=== PATIENT | male | born 1955 | race Caucasian/White ===

== ENCOUNTER 2021-09-08 09:58 | Outpatient (CLI) | payer MEDICAID, SELFPAY ==
[2021-09-08 12:25] LABS: Absolute Lymphocyte Count 2.02 X10^3/uL (0.83-4.51); Absolute Neutrophil Count 3.4 X10^3/uL (2.0-7.7); Basophil# 0.02 X10^3/uL; Basophil% 0.3 % (0-1); Eosinophil# 0.06 X10^3/uL; Hematocrit 44.8 % (40-54); Lymphocyte # 2.02 X10^3/ul (0.83-4.51); Lymphocyte % 33.1 % (19-41); Mean Corp Hgb Conc 33.5 g/dL (32-36); Mean Corpuscular Hgb 31.3 pg (27.0-32.0); Mean Corpuscular Volume 93.5 fL (80-94); Mean Platelet Vol. 10.8 fl (6.2-12.0); Monocyte# 0.55 X10^3/uL; NRBC Flagged by Analyzer 0 % (0-5); Neutrophil # 3.44 X10^3/uL (2.7-7.7); Neutrophil % 56.4 % (47-70); Platelet Count 195 K/mm3 (150-450); RBC Distribution Width SD 48.2 fl (35.1-43.9); Red Blood Count 4.79 M/mm3 (4.6-6.2); White Blood Count 6.1 K/mm3 (4.4-11.0)
[2021-09-08 13:01] LABS: AST(SGOT) 9 U/L (15-37); Alanine Aminotransfer ALT/SGPT 24 U/L (16-61); Albumin, Serum 3.7 g/dL (3.2-5.0); Alkaline Phosphatase 77 U/L (45-117); Anion Gap 5 (5-15); BUN 21 mg/dL (7-18); Calcium,Total 8.5 mg/dL (8.5-10.1); Chloride 107 mmol/L (98-107); Cholesterol 194 mg/dL (200); Creatinine, Serum 0.88 mg/dL (0.70-1.30); EST Glomerular Filtration Rate 93 mL/min (>60); Est Glom Filt Rate - Afr Amer 113 mL/min (>60); Globulin 3.7 g/dL (2.2-4.2); Glucose 92 mg/dL (74-106); High Density Lipoprotein 60 mg/dL; Potassium 4.2 mmol/L (3.5-5.1); Protein, Total 7.4 g/dL (6.4-8.2); Sodium Level 141 mmol/L (136-145); Triglycerides 226 mg/dL; Very Low Density Lipoprotein 45 mg/dL (5-40)
[2021-09-08 13:14] LABS: Valproic Acid (Depakene) Level 83 ug/mL (50-100)
== END 2021-09-08 23:59 | disposition home or self-care (01) ==
LOC: BIMLAB 09:59
PROVIDERS: PCP Internal Medicine; Referring Provider Internal Medicine; Visit Provider Internal Medicine
DX: J43.9 Emphysema, unspecified (principal); R56.9 Unspecified convulsions; R03.0 Elevated blood-pressure reading, without diagnosis of hypertension
CPT/HCPCS: 36415; 80053; 80061; 80164; 85025

== ENCOUNTER 2021-09-18 08:20 | Outpatient (CLI) | payer MEDICAID, SELFPAY ==
--- NOTE | 2021-09-18 13:23 | PFTCOMP ---
COMPLETE PULMONARY FUNCTION TEST INTERPRETATION Brief HPI: Patient is a 66 year old male, currently under the care of Dr. Mello, who presents to [facility] for complete pulmonary function tests secondary to diagnosis of emphysema. Respiratory therapist reports good effort and reproducible results. Interpretation: Forced expiration spirometry shows a severe large airways obstructive ventilatory defect with an FEV1 of 45% predicted. There is a significant bronchodilator response in FVC and FEV1 by strict ATS criteria. Spirograms are of good quality and plateau slowly, indicating slowly emptying areas of the lungs. The respiratory flow volume loop shows decreased expiratory flow rates at all lung volumes consistent with airway obstruction. Lung volumes by body plethysmography show an elevated total lung capacity at 11.67 L, 183% predicted. FRC and RV are elevated out of proportion. Lung volume measurements are consistent with hyperinflation and air-trapping. Diffusion capacity by carbon monoxide is relatively preserved at 75% predicted. The airway resistance is elevated. No previous pulmonary function tests were available for review. Impression: Partially reversible severe large airways obstructive ventilatory defect resulting in air trapping with hyperinflation in a pattern consistent with COPD/asthma overlap syndrome
== END 2021-09-18 23:59 | disposition home or self-care (01) ==
LOC: PSN 08:22
PROVIDERS: PCP Internal Medicine; Referring Provider Internal Medicine; Visit Provider Internal Medicine
DX: J43.9 Emphysema, unspecified (principal)
CPT/HCPCS: 94060; 94726; 94729

== ENCOUNTER → 2023-01-10 | Outpatient (CLI) | payer MEDICARE, BC, SELFPAY ==
--- NOTE | 2023-01-10 15:54 | RAD_ITS ---
INDICATION: Right Shoulder Pain EXAMINATION/TECHNIQUE: X-RAY - RIGHT XR Shoulder Min 2 Views COMPARISON: None. FINDINGS: SOFT TISSUES: Unremarkable. BONES/JOINTS: No fracture or dislocation. Moderate degenerative changes of the acromioclavicular joint with no significant downgoing osteophytes. The glenohumeral joint is unremarkable. No erosive changes. RAD/Shoulder min 2 Views IMPRESSION: AC joint degenerative change with otherwise unremarkable views of the right shoulder. Electronically Signed: Vamshi Jorgensen DO at 5:29 EDT ,
--- NOTE | 2023-01-10 15:55 | RAD_ITS ---
INDICATION: Radiculopathy EXAMINATION/TECHNIQUE: X-RAY - XR Spine Cervical 2 or 3 Views COMPARISON: None. FINDINGS: VERTEBRAE: No fracture or subluxation. Moderate degenerative changes. No erosive changes. PREVERTEBRAL SOFT TISSUES: Unremarkable. LUNG APICES: Visualized portions unremarkable. RAD/Cerv Spine 2 or 3 Views IMPRESSION: Moderate degenerative changes with no acute abnormality. Electronically Signed: Vamshi Jorgensen DO at 3:46 EDT ,
[2023-01-10 17:07] LABS: Absolute Lymphocyte Count 2.06 X10^3/uL (0.83-4.51); Absolute Neutrophil Count 4.9 X10^3/uL (2.0-7.7); Basophil# 0.03 X10^3/uL; Basophil% 0.4 % (0-1); Eosinophil# 0.06 X10^3/uL; Eosinophils% 0.8 % (0-5); Hematocrit 45.9 % (40-54); Hemoglobin 14.9 g/dL (13.0-16.5); Lymphocyte # 2.06 X10^3/ul (0.83-4.51); Mean Corp Hgb Conc 32.5 g/dL (32-36); Mean Corpuscular Volume 95.4 fL (80-94); Mean Platelet Vol. 10.9 fl (6.2-12.0); Monocyte# 0.51 X10^3/uL; Monocyte% 6.7 % (0-10); NRBC Flagged by Analyzer 0 % (0-5); Neutrophil # 4.94 X10^3/uL (2.7-7.7); Neutrophil % 64.7 % (47-70); Platelet Count 234 K/mm3 (150-450); RBC Distribution Width CV 14.2 % (11.6-14.6); RBC Distribution Width SD 49.9 fl (35.1-43.9); Red Blood Count 4.81 M/mm3 (4.6-6.2); White Blood Count 7.6 K/mm3 (4.4-11.0)
[2023-01-10 17:29] LABS: ALB/GLOB Ratio 0.9 RATIO (0.9-2.4); AST(SGOT) 10 U/L (15-37); Alanine Aminotransfer ALT/SGPT 24 U/L (16-61); Albumin, Serum 3.5 g/dL (3.2-5.0); Alkaline Phosphatase 72 U/L (45-117); Anion Gap 4 (5-15); BUN 23 mg/dL (7-18); BUN/Creat Ratio 25.2 RATIO (10-20); Calcium,Total 9.3 mg/dL (8.5-10.1); Chloride 110 mmol/L (98-107); Cholesterol 190 mg/dL (200); Creatinine, Serum 0.91 mg/dL (0.70-1.30); EST Glomerular Filtration Rate 88 mL/min (>60); Est Glom Filt Rate - Afr Amer 107 mL/min (>60); Globulin 3.8 g/dL (2.2-4.2); Glucose 142 mg/dL (74-106); High Density Lipoprotein 66 mg/dL; Potassium 4.6 mmol/L (3.5-5.1); Protein, Total 7.3 g/dL (6.4-8.2); Sodium Level 143 mmol/L (136-145); Triglycerides 156 mg/dL; Very Low Density Lipoprotein 31 mg/dL (5-40)
[2023-01-11 09:47] LABS: Hemoglobin A1c 6.2 % (3.8-5.6)
== END | disposition home or self-care (01) ==
PROVIDERS: PCP Internal Medicine; Referring Provider Internal Medicine; Visit Provider Internal Medicine
DX: I10 Essential (primary) hypertension (principal); R73.9 Hyperglycemia, unspecified; M54.12 Radiculopathy, cervical region; M25.511 Pain in right shoulder
CPT/HCPCS: 36415; 72040; 73030; 80053; 80061; 83036; 85025

== ENCOUNTER 2023-02-21 18:00 | Outpatient (RCR) | payer MEDICARE, BC, SELFPAY ==
--- NOTE | 2023-01-18 13:31 | HP.PTEVAL_ITS ---
Patient's Visit Information Visit Information Visit Information: DEE DEE is a 67 year old M referred to Physical Therapy by Dr. Tiny Mello MD with a diagnosis of RADICULOPATHY ,CERVICAL REGION ,PAIN IN RIGHT SHOULDER. Date of Evaluation: 01/18/23 Physical Therapist: Miguel Hercules, PT, Cert MDT, OCS Visit Plan Frequency: 1-2x /Week Duration: 4 Weeks Plan: PT INTERVTIONS POSTURAL EX'S ,CERVICAL ROM , STRENGTHEING ,ICTX 17# -25# X15MIN Subjective Subjective: This 67 y/o male with physical therapy cervical and right pain. Patient has right shoulder pain since ~ 3weeks . 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 Patient located right shoulder global. Patient seen DR florencio BLEVINS and had x-rays shoulder and neck. Occasional sharp pain otherwise light ache .Aggravating factors lifting bags at work ,pushing on arm. Over week pain worse with rotating neck . Patient can affects sleeping. Patient pain alleviating rest. Patient has paresthesia/tingling when raises arm [place]. Denies PARK /tinnitus/nausea. Patient DR thinks possible cervical radiculopathy. Patient condition affects QOL and function/job demands. 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 Right Shoulder: Pain Intensity (Out of 10): 3 Pain Intensity Range: 10 Objective Objective: POSTURE: mild forward posture rounded shoulders NEURO: c/o paresthesia/tingling in arm ,reflexes C5-6-7 1/ PALAPTION: unremarkable AROM: BUE AROM WFL MMT: RTC 4/5 ,Deltoid 4/5 CERVICAL AROM: flexion min loss extension ,lateral flexion/rotation mod loss Special Tests C/S Radiculapathy - Left Upper limb tension test: Negative C/S Radiculapathy - Right Upper limb tension test: Negative C/S Radiculapathy - Left Spurlings: Positive C/S Radiculapathy - Right Spurlings: Positive C/S Radiculapathy - Left Cervical distraction: Negative C/S Radiculapathy - Right Cervical distraction: Negative C/S Radiculapathy - Left Relief test: Negative C/S Radiculapathy - Right Relief test: Negative Sharp Kely: Negative Vertebral Artery Test: Negative Alar Ligament Test: Negative R Shoulder Drop Sign - IS Test: Negative R Shoulder Empty Can - SS: Negative R Shoulder Belly Press - SupScap: Negative R Shoulder Neer - Impingement: Negative R Shoulder Sarmiento Vincent - Impingement: Negative R Shoulder Yeargasons - SLAP: Negative R Shoulder O'Briens - SLAP/A-C: Negative R Shoulder AC Resisted - AC: Negative R Shoulder Shrug Sign - OA/Adhesive Capsulitis: Negative Balance/Special Test Scores Oswestry Neck Score: 11 Goals Goal 1:: Patient to be I with HEP Goal Time Frame: 4-6 Weeks Goal 2:: Patient to demonstrate 50% improvement with improved function Goal Time Frame: 4-6 Weeks Goal 3:: Patient cervical ROM for function of recovery to turn neck for driving Goal Time Frame: 4-6 Weeks Goal 4:: Patient to improve neck oswestry by 5 points to improve function Goal Time Frame: 4-6 Weeks Rehabilitation Potential Physical Therapy Diagnosis: This patient has possible cervical radiculopathy with pain in right arm with movements to right side and extension symptoms increase with positioning and motion testing right shoulder RTC and deltoid good strength thus benefit from skilled PT Rehabilitation Potential: Good Anticipated Interventions Patient/Client Instruction: Educate patient on: Condition and Plan of Care For the Purpose of:: To decrease pain, To improve nutrient delivery to tissue, To increase oxygenation perfusion, To improve muscle performance and motor function, To improve ability to perform ADL's, To increase tolerance to activity/condition/position, To improve ability of physical actions for home/community/work/leisure, To improve gait and locomotor functions, To increase flexibility/ROM, To improve balance, To reduce risk of recurrence and To improve tolerance to ADL's Therapeutic Exercise to Include: Strength training, Postural training, Flexibilty training and Active ROM For the Purpose of:: To decrease pain, To increase ROM, To improve muscle performance and motor function, To increase tolerance to activity/condition/position, To improve ability of physical actions for home/community/work/leisure, To improve health of tissue, To decrease soft tissue restriction and To increase flexibility/ROM TENS: Yes IF ES: Yes Ultrasound (thermal/non thermal): Yes Intermittent cervical traction: Yes For the Purpose of:: To decrease pain, To increase ROM, To improve nutrient delivery to tissue, To increase oxygenation perfusion, To improve health of tissue, To decrease soft tissue restriction and To increase flexibility/ROM Text: Thank you for the opportunity to evaluate your patient. For Medicare and Medicare HMO plans, please review the plan of care and approve it. It will need to be FAXED BACK to us at [phone] for Medicare purposes. For Medicare only, by signing this I certify the plan of care. Please let me know if there are questions or concerns regarding this plan of care. Physician Signature: Date:
--- NOTE | 2023-02-21 18:23 | HP.PTDCSUM ---
Discharge Summary D/C summary: It has been my pleasure to treat DEE DEE referred by Dr. Tiny Mello MD, with the diagnosis of RADICULOPATHY ,CERVICAL REGION ,PAIN IN RIGHT SHOULDER for a total of 4 visit(s). Discharge Date: 02/21/23 Please see the following information for a summary of their discharge status. Subjective Subjective: Doing good ready for d/c Pain Right Shoulder: Pain Intensity (Out of 10): 0 Overall Improvement % Improvement: 80 Objective Objective/Function: Objective: POSTURE: mild forward posture rounded shoulders NEURO: c/o paresthesia/tingling in arm ,reflexes C5-6-7 07/06 PALAPTION: unremarkable AROM: BUE AROM WFL MMT: RTC 4/5 ,Deltoid 4/5 CERVICAL AROM: flexion min loss extension ,lateral flexion/rotation mod loss Goals Goal 1:: Patient to be I with HEP Goal Progress: Goal Met Goal 2:: Patient to demonstrate 50% improvement with improved function Goal Progress: Goal Met Goal 3:: Patient cervical ROM for function of recovery to turn neck for driving Goal Progress: Goal Met Goal 4:: Patient to improve neck oswestry by 5 points to improve function Plan Plan: D/C D/C Information d/c sentence: If there are questions or concerns regarding this patient's physical therapy, please feel free to call me at [phone]. Thank you for the referral of this patient. Sincerely, Miguel Hercules, PT, Cert MDT, OCS Balance/Gait/Functional tests Balance/Special Test Scores Oswestry Neck Score: 0
== END 2023-02-21 19:00 | disposition home or self-care (01) ==
LOC: PT 18:00
PROVIDERS: PCP Internal Medicine; Referring Provider Internal Medicine; Visit Provider Internal Medicine
DX: M54.12 Radiculopathy, cervical region (principal); M25.511 Pain in right shoulder; G89.29 Other chronic pain
CPT/HCPCS: 97012; 97110; 97162

== ENCOUNTER → 2023-07-01 | Outpatient (CLI) | payer MEDICARE, BC, SELFPAY ==
--- OUTSIDE RECORDS SUMMARY | 2023-07-01 14:18 | XMS RPT_ITS | CCD ---
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 Name Role Phone RADHA SOLIMAN Unavailable Unavailable Unavailable Primary Care Provider Unavailabl e Unavailable Primary Care Provider Unavailmagdalena Dietz MD, Trini Unavailable PATIENT, SELF Referring Unavailable PROVIDER, UNKNOWN Attending Unavailable PROVIDER, UNKNOWN Admitting Unavailable PROVIDER, UNKNOWN Attending Unavailable PROVIDER, UNKNOWN Admitting Unavailable PATIENT, SELF Referring Unavailable Saima Perry MD Unavailable UNA BARRETT Attending Unavailable SELF Referring Unavailable DANIEL SCHMITZ Referring Unavailable DANIEL SCHMITZ Attending Unavailable DOLLY MUNSON Referring Unavailable UNA BARRETT Referring Unavailable SAIMA PERRY Attending Unavailable UNA BARRETT Referring Unavailable UNA BARRETT Referring Unavailable UNA BARRETT Attending Unavailable UNA BARRETT Referring Unavailable Medications Current Medications Medication Drug Class(es) Dates Sig (Normalized) Sig (Original) cholecalciferol 0.025 mg oral tablet (14 sources) Vitamin D Start: 12-24-2021 End: 12-16-2022 take 1 tablet by mouth once daily Cholecalciferol (Vitamin D) 25 MCG (1000 UT) TABS Take 1 tablet by mouth daily. 90 Tablet 3 12/16/2022 Active Completed/Discontinued Medications Medication Drug Class(es) Dates Sig (Normalized) Sig (Original) albuterol 0.83 mg/ml inhalation solution (20 sources) beta2-Adrenergic Agonist Start: 01-06-2023 take 2 puff(s) by inhalation every six hours as needed for wheezing albuterol HFA (PROVENTIL HFA, VENTOLIN HFA) 90 mcg/actuation inhaler Indications: Stage 3 severe COPD by GOLD classification (HCC) Inhale 2 Puffs as instructed every 6 hours as needed for wheezing/shortness of breath. 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, not intractable, without status epilepticus] Onset: 02-11-2006 Chronic Miscellaneous mental health disorders (11 sources) Psychologic conversion disorder; Translations: [Dissociative and conversion disorder, unspecified] 03-29-2010 Chronic Nutritional deficiencies (2 sources) Vitamin D deficiency; Translations: [Vitamin D deficiency, unspecified] Chronic Open wounds of extremities (1 source) Laceration without foreign body of left thumb without damage to nail, initial encounter; Translations: [Laceration without foreign body of left thumb without damage to nail, initial encounter] Onset: 06-30-2018 Episodic Other aftercare (4 sources) Patient encounter status; Translations: [Encounter for therapeutic drug level monitoring] Episodic Other lower respiratory disease (3 sources) Multiple nodules of lung; Translations: [Other nonspecific abnormal finding of lung field] Episodic Other nutritional; endocrine; and metabolic disorders (1 source) Overweight in adulthood with body mass index of 25 or more but less than 30; Translations: [Body mass index (BMI) 26.0-26.9, adult] 12-16-2022 Episodic Residual codes; unclassified (4 sources) Tobacco user; Translations: [Tobacco use] Episodic Substance-related disorders (16 sources) Cigarette smoker ; Translations: [Nicotine dependence, cigarettes, uncomplicated] Onset: 03-22-2006 Chronic Past or Other Problems Problem Classification Problem Date Documented Da te Episodic/Chronic Mycoses (11 sources) Tinea pedis; Translations: [Tinea pedis] Onset: 03-25-2008 03-25-2008 Episodic Other skin disorders (11 sources) Sebaceous cyst of skin; Translations: [Sebaceous cyst] Onset: 03-26-2009 03-26-2009 Episodic Skin and subcutaneous tissue infections (11 sources) Abscess; Translations: [Cellulitis, unspecified] Onset: 03-25-2008 03-25-2008 Episodic Results Test Name Value Interpretation Reference Range Facil ity Vital Signs Date Time Vital Sign Value Performing Clinician Harvey kirby 06-16-2023 10:23-0500 Body weight 83.92 kg Saima Perry MD Work Phone: [facility] 06-16-2023 10:23-0500 Diastolic blood pressure 84 mm[Hg] Saima Perry MD Work Phone: [facility] 06-16-2023 10:23-0500 Heart rate 94 /min Saima Perry MD Work Phone: [facility] 06-16-2023 10:23-0500 Respiratory rate 20 /min Saima Perry MD Work Phone: [facility] 06-16-2023 10:23-0500 SaO2% (BldA) [Mass fraction] 100 % Saima Perry MD Work Phone: [facility] 06-16-2023 10:23-0500 Systolic blood pressure 140 mm[Hg] Saima Perry MD Work Phone: [facility] 04-07-2023 13:26-0400 Body weight 82.56 kg Pulm Wstr Work Phone: [facility] 04-07-2023 13:24-0400 Body weight 82.56 kg Una Barrett PA-C Work Phone: [facility] 04-07-2023 13:24-0400 Diastolic blood pressure 82 mm[Hg] Una Esquivelone PA-C Work Phone: [facility] 04-07-2023 13:24-0400 Heart rate 80 /min Una Mary Carmen PA-C Work Phone: [facility] 04-07-2023 13:24-0400 Respiratory rate 15 /min Una Esquivelone PA-C Work Phone: [facility] 04-07-2023 13:24-0400 SaO2% (BldA) [Mass fraction] 94 % Una Mary Carmen PA-C Work Phone: [facility] 04-07-2023 13:24-0400 Systolic blood pressure 120 mm[Hg] Una Mary Carmen PA-C Work Phone: [facility] 01-06-2023 12:58-0400 Body weight 81.65 kg Una Mary Carmen PA-C Work Phone: [facility] 01-06-2023 12:58-0400 Diastolic blood pressure 92 mm[Hg] Una Mary Carmen PA-C Work Phone: [facility] 01-06-2023 12:58-0400 Heart rate 83 /min Una Mary Carmen PA-C Work Phone: [facility] 01-06-2023 12:58-0400 Respiratory rate 19 /min Una Mary Carmen PA-C Work Phone: [facility] 01-06-2023 12:58-0400 SaO2% (BldA) [Mass fraction] 96 % Una Mary Carmen PA-C Work Phone: [facility] 01-06-2023 12:58-0400 Systolic blood pressure 160 mm[Hg] Una Mary Carmen PA-C Work Phone: [facility] 01-05-2023 13:37-0400 Body weight 81.65 kg Daniel La Cygne DEHYDROGENATION OPERATOR.GROUP DIRECTOR Work Phone: [facility] 01-05-2023 13:37-0400 Diastolic blood pressure 100 mm[Hg] Daniel La Cygne DEHYDROGENATION OPERATOR.GROUP DIRECTOR Work Phone: [facility] 01-05-2023 13:37-0400 Heart rate 93 /min Daniel La Cygne DEHYDROGENATION OPERATOR.GROUP DIRECTOR Work Phone: [facility] 01-05-2023 13:37-0400 Respiratory rate 16 /min Daniel La Cygne DEHYDROGENATION OPERATOR.GROUP DIRECTOR Work Phone: [facility] 01-05-2023 13:37-0400 SaO2% (BldA) [Mass fraction] 97 % Daniel Schmitz DEHYDROGENATION OPERATOR.GROUP DIRECTOR Work Phone: [facility] 01-05-2023 13:37-0400 Systolic blood pressure 162 mm[Hg] Daniel Schmitz DEHYDROGENATION OPERATOR.GROUP DIRECTOR Work Phone: [facility] 12-16-2022 14:47-0400 Diastolic blood pressure 90 mm[Hg] Trini Dietz MD Work Phone: [facility] Encounters Encounter Date Encounter Type Care Provider Facility Start: 06-16-2023 End: 06-16-2023 ambulatory UNA BARRETT Facility:[facility] Start: 06-16-2023 End: 06-16-2023 Patient encounter procedure Saima Perry MD Work Phone: Pulmonary Medicine Procedures Date Procedure Procedure Detail Performing Clinician Start: 04-07-2023 Co diffusing capacity J gilda Barrett PA-C Work Phone: Start: 01-05-2023 CT LUNG SCREEN WO IVCON Dolly Munson DEHYDROGENATION OPERATOR.GROUP DIRECTOR Work Phone: Start: 12-16-2022 Basic metabolic pane l calcium total Trini Dietz MD Work Phone: Start: 12-16-2022 Drug assay valproic dipropylacetic acid total Trini Dietz MD Work Phone: Start: 04-26-2006 Lipid 1996 panel - S lisa or Plasma Pulm Wstr Work Phone: Plan of Treatment Date Care Activity Detail Author Start: 09-08-2026 Lipid panel [facility] Start: 12-16-2025 DIABETES SCREEN DIABETES SCREEN [facility] Start: 12-16-2025 Diabetes Screening Diabetes Screenin g [facility] Start: 01-06-2024 End: 02-04-2024 CT LUNG SCREEN WO IVCON CT LUNG SCREEN WO IVCON Radiology Routine Encounter for screening for lung cancer Expected: 01/06/2024, Expires: 02/04/2024 [facility] Work Phone: Immunizations Immunization Date Immunization Notes Care Provider Muna hurddarío 03-26-2009 influenza virus vacc ine, unspecified formulation Kathryn Montana PharmD [facility] 03-25-2008 tetanus toxoid, redu liza diphtheria toxoid, and acellular pertussis vaccine, adsorbed Kathryn Montana PharmD [facility] Payers Date Payer Category Payer Medicare [id number] 2022 Medicare [id number] 2022 Unknown [id number] 2018 Unknown [id number] 1957 Unknown [id number] 1955 Unknown [id number] Social History Date Type Detail Facility Start: 12-24-2021 End: 01-05-2023 Tobacco smoking status FLIS Smokes tobacco daily [facility] History of tobacco use Cigarette Smoker M [facility] Start: 12-24-2021 End: 01-05-2023 Cigarettes smoked current (pack per day) - Reported 0.25 [facility] Start: 12-24-2021 End: 01-05-2023 Tobacco use and exposure Smokeless tobacco non-user [facility] Start: 1955 Sex Assigned At Not on file [facility] Start: 06-12-2021 End: 06-16-2023 Alcohol intake Current drinker of alcohol (finding) [facility] Start: 01-23-2021 Tobacco Comment Started at 17- had quit in September 2020 but dealing with work stress [facility] Start: 01-05-2023 End: 01-06-2023 Gender identity Not on file [facility] Start: 01-05-2023 Tobacco Comment Started at 17- had quit in September 2020 but dealing with work stress, Quit for 10 years [facility] PHQ2 Score [address] [facility] Clinical Notes 12-24-2021 to 06-16-2023 Saima Perry MD - 06/16/2023 10:30 AM ESTAddendum Note - Una Barrett PA-C - 05/12/2023 2:50 PM ESTTelephone Encounter - Bri Vega JESSICA - 05/12/2023 2:22 PM ESTPatient Instructions Note Date & Type Note Facility 06-16-2023 Note HNO ID: [id number] Author: Saima Perry MD Service: ? Author Type: Physician Type: Progress Notes Filed: 06/16/2023 3:03 PM Note Text: . Respiratory [facility] Note Patient name: Dee Dee PCP: No primary care provider on file. CC: follow-up COPD HPI: Dee Dee 68 year old male current 40 pack year smoker with PMH significant for severe COPD, seizures, lung nodules. He does well on Trelegy Ellipta but cannot afford. Current therapy consists of AirDuo and as needed albuterol. He had trouble getting his AirDuo from the pharmacy (on back order) so he had more trouble with SOB and wheezing. He used a friend's nebulized albuterol and felt better. Was using at night before retiring to bed as this was when his symptoms were more prominent. He does have a nebulizer machine but did not have an updated supply of albuterol. Currently denies wheezing, cough, chest pain or SOB. Declining influenza vaccine. LDCT chest for cancer screening showed multiple nodules but nothing suspicious so due for repeat at one year. He is trying to quit smoking. He has cut back and just got patches. DATA: PFT 04/2023: Review of pulmonary function tests show moderately severe obstruction Labs: Component Ref Range AND Units 6 mo ago WBC 4.5 - 11.5 K/uL 7.4 RBC 4.50 - 5.90 M/uL 4.54 Hemoglobin 13.9 - 16.3 g/dL 14.1 Hematocrit 41.0 - 53.0 % 43.1 MCV 80 - 100 fL 95 MCH 26.0 - 34.0 pg 31.0 MCHC 32.0 - 35.9 g/dL 32.6 Platelet 150 - 400 K/uL 168 RDW-CV 11.5 - 14.5 % 15.6 High MPV 7.5 - 11.2 fL 9.7 Neutrophils 31.0 - 76.0 % 55.5 Neutrophil # 1.50 - 8.00 K/uL 4.08 Lymphocytes 24.0 - 44.0 % 35.8 Lymphocytes # 1.00 - 4.80 K/uL 2.63 Monocytes 2.0 - 11.0 % 7.2 Monocyte # 0.20 - 1.00 K/uL 0.53 Eosinophil 0.1 - 4.0 % 1.3 Eosinophil # 0.00 - 0.70 K/uL 0.09 Basophils <=1.9 % 0.3 Basophil # 0.00 - 0.20 K/uL 0.02 Imaging / Diagnostic Studies: DATE OF EXAM: Jan 05 2023 1:41PM [facility] [place] 0562 - CT LUNG SCREEN WO IVCON / PROCEDURE REASON: Cigarette smoker Subsequent (annual) COMPARISON: Prior lung screen dated 10/09/2020 RESULT: Are nodules present? Yes, 1-5 nodules Other lung nodule comments: 4 mm subpleural right lower lobe nodule (204) unchanged. 4 mm right upper lobe nodule (1:30) unchanged. 4 mm left upper lobe nodule (153) unchanged. Few other scattered small nodules unchanged. No new nodules. Other findings: Moderate coronary calcifications. Mild degenerative changes of the thoracic spine. Bronchial thickening and mild upper lobe emphysema. I personally reviewed the images which shows emphysema and lung nodules PAST MEDICAL HISTORY Diagnosis Date Conversion disorder COPD (chronic obstructive pulmonary disease) (HCC) Epilepsy (HCC) Lung nodules ALLERGIES No Known Allergies fluticasone propion-salmeterol (AIRDUO RESPICLICK) 232-14 mcg/actuation Inhale 1 Inhalation as instructed two times a day. amLODIPine (NORVASC) 10 mg tablet albuterol HFA (PROVENTIL HFA, VENTOLIN HFA) 90 mcg/actuation inhaler Inhale 2 Puffs as instructed every 6 hours as needed for wheezing/shortness of breath. divalproex DR (DEPAKOTE) 500 mg EC tablet Take 1,000 mg by mouth twice daily. Cholecalciferol, Vitamin D3, (VITAMIN D) 25 mcg (1,000 unit) cap Take 1,000 Units by mouth once daily. ibuprofen (MOTRIN) 600 mg tablet Take 1 tablet by mouth every 6 hours as needed. ibuprofen (MOTRIN) 600 mg tablet Take 1 tablet by mouth every 6 hours as needed. albuterol (PROVENTIL) 2.5 mg /3 mL (0.083 %) nebulizer solution Use 3 mL via nebulizer every 4 hours as needed. OVER 5-15 MINUTES. FOR WHEEZING AND SHORTNESS OF BREATH. Social History Tobacco Use Smoking status: Every Day Packs/day: 1.50 Years: 40.00 Additional pack years: 0.00 Total pack years: 60.00 Types: Cigarettes Smokeless tobacco: Never Tobacco comments: Started at 17- had quit in September 2020 but dealing with work stress, Quit for 10 years Substance Use Topics Alcohol use: Yes Comment: very little Drug use: No FAMILY HISTORY Problem Relation Age of Onset Asthma Brother Asthma Brother Coronary Artery Disease Father Diabetes Mother Diabetes Sister Diabetes Brother Lung Cancer Brother Thyroid Brother PAST SURGICAL HISTORY Procedure Laterality Date TONSILLECTOMY AND ADENOIDECTOMY PMH, Social history, family history and surgical history reviewed and updated in EMR REVIEW OF SYSTEMS: CONSTITUTIONAL: No fevers, chills, nightsweats, unintended weight loss HEENT: Denies nasal congestion/sinus symptoms, allergy problems. CARDIOVASCULAR: No chest pain, dyspnea, palpitations, orthopnea, PND, edema. PULM: See HPI GI: No dysphagia/odynophagia, problematic reflux PSY: No concerns regarding depression, anxiety INTEGUMENTARY: No new skin changes or rashes PHYSICAL EXAMINATION: BP 140/84 Pulse 94 Re (more content not included)... [facility] 06-16-2023 History of Present illness Narrative Images from the original note were not included. . Respiratory [facility] Note Patient name: Dee Dee PCP: No primary care provider on file. CC: follow-up COPD HPI: Dee Dee 68 year old male current 40 pack year smoker with PMH significant for severe COPD, seizures, lung nodules. He does well on Trelegy Ellipta but cannot afford. Current therapy consists of AirDuo and as needed albuterol. He had trouble getting his AirDuo from the pharmacy (on back order) so he had more trouble with SOB and wheezing. He used a friend's nebulized albuterol and felt better. Was using at night before retiring to bed as this was when his symptoms were more prominent. He does have a nebulizer machine but did not have an updated supply of albuterol. Currently denies wheezing, cough, chest pain or SOB. Declining influenza vaccine. LDCT chest for cancer screening showed multiple nodules but nothing suspicious so due for repeat at one year. He is trying to quit smoking. He has cut back and just got patches. DATA: PFT 04/2023: Review of pulmonary function tests show moderately severe obstruction Labs: Component Ref Range & Units 6 mo ago WBC 4.5 - 11.5 K/uL 7.4 RBC 4.50 - 5.90 M/uL 4.54 Hemoglobin 13.9 - 16.3 g/dL 14.1 Hematocrit 41.0 - 53.0 % 43.1 MCV 80 - 100 fL 95 MCH 26.0 - 34.0 pg 31.0 MCHC 32.0 - 35.9 g/dL 32.6 Platelet 150 - 400 K/uL 168 RDW-CV 11.5 - 14.5 % 15.6 High MPV 7.5 - 11.2 fL 9.7 Neutrophils 31.0 - 76.0 % 55.5 Neutrophil # 1.50 - 8.00 K/uL 4.08 Lymphocytes 24.0 - 44.0 % 35.8 Lymphocytes # 1.00 - 4.80 K/uL 2.63 Monocytes 2.0 - 11.0 % 7.2 Monocyte # 0.20 - 1.00 K/uL 0.53 Eosinophil 0.1 - 4.0 % 1.3 Eosinophil # 0.00 - 0.70 K/uL 0.09 Basophils <=1.9 % 0.3 Basophil # 0.00 - 0.20 K/uL 0.02 Imaging / Diagnostic Studies: DATE OF EXAM: Jan 05 2023 1:41PM [facility] [place] 0562 - CT LUNG SCREEN WO IVCON / PROCEDURE REASON: Cigarette smoker Subsequent (annual) COMPARISON: Prior lung screen dated 10/09/2020 RESULT: Are nodules present? Yes, 1-5 nodules Other lung nodule comments: 4 mm subpleural right lower lobe nodule (204) unchanged. 4 mm right upper lobe nodule (1:30) unchanged. 4 mm left upper lobe nodule (153) unchanged. Few other scattered small nodules unchanged. No new nodules. Other findings: Moderate coronary calcifications. Mild degenerative changes of the thoracic spine. Bronchial thickening and mild upper lobe emphysema. I personally reviewed the images which shows emphysema and lung nodules PAST MEDICAL HISTORY Diagnosis Date Conversion disorder COPD (chronic obstructive pulmonary disease) (HCC) Epilepsy (HCC) Lung nodules ALLERGIES No Known Allergies fluticasone propion-salmeterol (AIRDUO RESPICLICK) 232-14 mcg/actuation Inhale 1 Inhalation as instructed two times a day. amLODIPine (NORVASC) 10 mg tablet albuterol HFA (PROVENTIL HFA, VENTOLIN HFA) 90 mcg/actuation inhaler Inhale 2 Puffs as instructed every 6 hours as needed for wheezing/shortness of breath. divalproex DR (DEPAKOTE) 500 mg EC tablet Take 1,000 mg by mouth twice daily. Cholecalciferol, Vitamin D3, (VITAMIN D) 25 mcg (1,000 unit) cap Take 1,000 Units by mouth once daily. ibuprofen (MOTRIN) 600 mg tablet Take 1 tablet by mouth every 6 hours as needed. ibuprofen (MOTRIN) 600 mg tablet Take 1 tablet by mouth every 6 hours as needed. albuterol (PROVENTIL) 2.5 mg /3 mL (0.083 %) nebulizer solution Use 3 mL via nebulizer every 4 hours as needed. OVER 5-15 MINUTES. FOR WHEEZING AND SHORTNESS OF BREATH. Social History Tobacco Use Smoking status: Every Day Packs/day: 1.50 Years: 40.00 Additional pack years: 0.00 Total pack years: 60.00 Types: Cigarettes Smokeless tobacco: Never Tobacco comments: Started at 17- had quit in September 2020 but dealing with work stress, Quit for 10 years Substance Use Topics Alcohol use: Yes Comment: very little Drug use: No FAMILY HISTORY Problem Relation Age of Onset Asthma Brother Asthma Brother Coronary Artery Disease Father Diabetes Mother Diabetes Sister Diabetes Brother Lung Cancer Brother Thyroid Brother PAST SURGICAL HISTORY Procedure Laterality Date TONSILLECTOMY & ADENOIDECTOMY <AGE 12 PMH, Social history, family history and surgical history reviewed and updated in EMR REVIEW OF SYSTEMS: CONSTITUTIONAL: No fevers, chills, nightsweats, unintended weight loss HEENT: Denies nasal congestion/sinus symptoms, allergy problems. CARDIOVASCULAR: No chest pain, dyspnea, palpitations, orthopnea, PND, edema. PULM: See HPI GI: No dysphagia/odynophagia, problematic reflux PSY: No concerns regarding depression, anxiety INTEGUMENTARY: No new skin changes or rashes PHYSICAL EXAMINATION: BP 140/84 Pulse 94 Resp 20 Wt 185 lb (83.9kg) SpO2 100% General Appearance: Age appropriate male, NAD. Skin: No suspicious lesions or rashes Head: Normocephalic, no masses, lesions, tenderness or abnormalities. Oropharynx: Poor dentition, no thrush. Neck: No JVD, no masses, no adenopathy. Lungs: Not labored, normal to percussion, no wheezes or crackles. Heart: RRR, no murmur. Extremities: Mild pitting edema, no clubbing. Assessment/Plan: COPD, GOLD stage 3 -Smoking cessation recommended -Continue AirDuo and albuterol -Sent in script for albuterol liquid -Recommended influenza vaccine but patient declining. Also a candidate for pneumonia vaccines Cigarette smoker -Current smoker with sequelae of COPD. Trying to quit smoking. He has cut back on smoking and just got patches to try to quit smoking -Enrolled in lung cancer screening program Saima Perry MD [facility] documented in this encounter [facility] 05-12-2023 Miscellaneous Notes Addended by: UNA BARRETT on: 05/12/2023 02:50 PM Modules accepted: Orders Patient called. Verified name and date of . Needs to be a 90 day supply. Requested Prescriptions Pending Prescriptions Disp Refills fluticasone propion-salmeterol (AIRDUO RESPICLICK) 232-14 mcg/actuation 1 Each 5 Sig: Inhale 1 Inhalation as instructed two times a day. [facility] Mail Order. Bri Vega LPN Patient called. Verified name and date of . His insurance advised him the AirDuo is no longer covered at [facility] and needs to be through mail order. He does not know which mail order pharmacy to go through and will call us back once he finds out. States he understood that perhaps the insurance would reach out to the clinic as he has been on phone multiple times trying to get this situated. Bir Vega LPN documented in this encounter [facility] 04-07-2023 Note HNO ID: [id number] Author: Una Barrett PA-C Service: ? Author Type: Physician Quality Assurance Tester Type: Progress Notes Filed: 04/07/2023 1:54 PM Note Text: Patient: Dee Dee PCP: No primary care provider on file. CC: follow up HPI: Dee Dee 67 year old male current 40 pack year smoker with PMH significant for severe COPD and seizure disorder who presents for follow-up visit. Patient tried Trelegy for 1 month and stated he noticed a significant improvement in shortness of breath. However, it was too expensive. Current therapy consists of Airduo with as needed albuterol. States he rarely needs Albuterol. Daily cough productive of clear sputum. No hemoptysis. Wheezing at the end of the day and first thing in the morning. Exertional dyspnea with walking long distances, carrying heavy objects, and climbing stairs. He tries to use stairs as much as possible. No lower extremity edema. Currently smoking 8-10 cigarettes daily. Stopped the Wellbutrin because he did not feel it was beneficial. 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 PAST MEDICAL HISTORY Diagnosis Date Conversion disorder COPD (chronic obstructive pulmonary disease) ([facility]) Epilepsy ([facility]) Lung nodules Allergies: No Known Allergies fluticasone propion-salmeterol (AIRDUO RESPICLICK) 232-14 mcg/actuation Inhale 1 Inhalation as instructed twice daily. buPROPion SR (WELLBUTRIN SR) 150 mg 12 hr tablet Take one tablet daily for 3 days, then one tablet by mouth twice daily (Begin two weeks prior to quit date) buPROPion SR (WELLBUTRIN SR) 150 mg 12 hr tablet Take 1 tablet by mouth twice daily. nicotine (NICODERM) 21 mg/24 hr Apply 1 Patch as directed every 24 hours. nicotine (NICODERM) 14 mg/24 hr Apply 1 Patch as directed every 24 hours. nicotine (NICODERM) 7 mg/24 hr Apply 1 Patch as directed every 24 hours. albuterol HFA (PROVENTIL HFA, VENTOLIN HFA) 90 mcg/actuation inhaler Inhale 2 Puffs as instructed every 6 hours as needed for wheezing/shortness of breath. divalproex DR (DEPAKOTE) 500 mg EC tablet Take 1,000 mg by mouth twice daily. Cholecalciferol, Vitamin D3, (VITAMIN D) 25 mcg (1,000 unit) cap Take 1,000 Units by mouth once daily. albuterol (PROVENTIL) 2.5 mg /3 mL (0.083 %) nebulizer solution Use 3 mL via nebulizer every 4 hours as needed. OVER 5-15 MINUTES. FOR WHEEZING AND SHORTNESS OF BREATH. ibuprofen (MOTRIN) 600 mg tablet Take 1 tablet by mouth every 6 hours as needed. ibuprofen (MOTRIN) 600 mg tablet Take 1 tablet by mouth every 6 hours as needed. Social History Tobacco Use Smoking status: Every Day Packs/day: 1.50 Years: 40.00 Additional pack years: 0.00 Total pack years: 60.00 Types: Cigarettes Smokeless tobacco: Never Tobacco comments: Started at 17- had quit in September 2020 but dealing with work stress, Quit for 10 years Substance Use Topics Alcohol use: Yes Comment: very little Drug use: No Family History Problem Relation Age of Onset Asthma Brother Asthma Brother Coronary Artery Disease Father Diabetes Mother Diabetes Sister Diabetes Brother Lung Cancer Brother Thyroid Brother PAST SURGICAL HISTORY Procedure Laterality Date TONSILLECTOMY AND ADENOIDECTOMY I reviewed the past medical history, family history, social history and surgical history with changes noted above and updated in EMR. IMMUNIZATIONS Prevnar - xx Pneumovax 23 - xx Influenza - xx COVID-19 - xx ROS: General: No fevers, chills or night sweats. No unintended weight loss. Eyes, Ears, nose, throat: No post nasal drip, rhinorrhea, purulent nasal discharge, epistaxis. No hoarseness. Vision stable. Cardiac: No angina, edema, orthopnea. Resp: See HPI. GI: No heartburn, dysphagia. Musculoskeletal: No pain. Neuro: No headache, focal weakness, tremor. Seizure disorder. Skin: No new skin changes or rash. Otherwise negative. PHYSICAL EXAMINATION: BP 120/82 Pulse 80 Resp 15 Wt 82.6 kg (182 lb) SpO2 94% BMI 26.88 kg/m? Gen: No acute distress. Cooperative with examination. HEENT: Normocephalic. Sclera, conjunctiva clear. Oral hygeine and dentition good. No thrush. Resp: No stridor, accessory respiratory muscle use, supra-sternal or intercostal retractions. No wheezes, crackles. CV: Regular rythm. Heart tones normal. Radial pulses normal. Abd: Non distended. MSK: No kyphoscoliosis. Ext: Warm and well perfused. No clubbing, cyanosis, edema. Skin: No rash, ecchymoses. Neuro: Mental status normal. Affect normal. No tremor. DATA: PFT, 04/07/2023 PFT demonstrates severe obstruction. Diffusion capacity is normal. PFT, 08/07/2020 IMPRESSION: Spirometry indicates moderately severe obstruction. There is a significant bronchodilator response. LDCT chest, 01/05/2023 IMPRESSION: LungRADS category: 2 LungRADS modifier: None LungRADS 0 reason: n/a Recommendations: Continue annual screening with LDCT in (more content not included)... [facility] 04-07-2023 Note HNO ID: [id number] Author: Alberto Parikh RPFT Service: ? Author Type: Respiratory Therapist Type: Progress Notes Filed: 04/07/2023 1:27 PM Note Text: PULM FUNCTION SMARTBLOCK: Provider: Una Barrett PA-C Assisting Tech: Alberto Parikh RPFT Spirometry: 1 DLCO: 1 [facility] 04-07-2023 History of Present illness Narrative Images from the original note were not included. Patient: Dee Dee PCP: No primary care provider on file. CC: follow up HPI: Dee Dee 67 year old male current 40 pack year smoker with PMH significant for severe COPD and seizure disorder who presents for follow-up visit. Patient tried Trelegy for 1 month and stated he noticed a significant improvement in shortness of breath. However, it was too expensive. Current therapy consists of Airduo with as needed albuterol. States he rarely needs Albuterol. Daily cough productive of clear sputum. No hemoptysis. Wheezing at the end of the day and first thing in the morning. Exertional dyspnea with walking long distances, carrying heavy objects, and climbing stairs. He tries to use stairs as much as possible. No lower extremity edema. Currently smoking 8-10 cigarettes daily. Stopped the Wellbutrin because he did not feel it was beneficial. 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 PAST MEDICAL HISTORY Diagnosis Date Conversion disorder COPD (chronic obstructive pulmonary disease) ([facility]) Epilepsy ([facility]) Lung nodules Allergies: No Known Allergies fluticasone propion-salmeterol (AIRDUO RESPICLICK) 232-14 mcg/actuation Inhale 1 Inhalation as instructed twice daily. buPROPion SR (WELLBUTRIN SR) 150 mg 12 hr tablet Take one tablet daily for 3 days, then one tablet by mouth twice daily (Begin two weeks prior to quit date) buPROPion SR (WELLBUTRIN SR) 150 mg 12 hr tablet Take 1 tablet by mouth twice daily. nicotine (NICODERM) 21 mg/24 hr Apply 1 Patch as directed every 24 hours. nicotine (NICODERM) 14 mg/24 hr Apply 1 Patch as directed every 24 hours. nicotine (NICODERM) 7 mg/24 hr Apply 1 Patch as directed every 24 hours. albuterol HFA (PROVENTIL HFA, VENTOLIN HFA) 90 mcg/actuation inhaler Inhale 2 Puffs as instructed every 6 hours as needed for wheezing/shortness of breath. divalproex DR (DEPAKOTE) 500 mg EC tablet Take 1,000 mg by mouth twice daily. Cholecalciferol, Vitamin D3, (VITAMIN D) 25 mcg (1,000 unit) cap Take 1,000 Units by mouth once daily. albuterol (PROVENTIL) 2.5 mg /3 mL (0.083 %) nebulizer solution Use 3 mL via nebulizer every 4 hours as needed. OVER 5-15 MINUTES. FOR WHEEZING AND SHORTNESS OF BREATH. ibuprofen (MOTRIN) 600 mg tablet Take 1 tablet by mouth every 6 hours as needed. ibuprofen (MOTRIN) 600 mg tablet Take 1 tablet by mouth every 6 hours as needed. Social History Tobacco Use Smoking status: Every Day Packs/day: 1.50 Years: 40.00 Additional pack years: 0.00 Total pack years: 60.00 Types: Cigarettes Smokeless tobacco: Never Tobacco comments: Started at 17- had quit in September 2020 but dealing with work stress, Quit for 10 years Substance Use Topics Alcohol use: Yes Comment: very little Drug use: No Family History Problem Relation Age of Onset Asthma Brother Asthma Brother Coronary Artery Disease Father Diabetes Mother Diabetes Sister Diabetes Brother Lung Cancer Brother Thyroid Brother PAST SURGICAL HISTORY Procedure Laterality Date TONSILLECTOMY & ADENOIDECTOMY <AGE 14 I reviewed the past medical history, family history, social history and surgical history with changes noted above and updated in EMR. IMMUNIZATIONS Prevnar - xx Pneumovax 23 - xx Influenza - xx COVID-19 - xx ROS: General: No fevers, chills or night sweats. No unintended weight loss. Eyes, Ears, nose, throat: No post nasal drip, rhinorrhea, purulent nasal discharge, epistaxis. No hoarseness. Vision stable. Cardiac: No angina, edema, orthopnea. Resp: See HPI. GI: No heartburn, dysphagia. Musculoskeletal: No pain. Neuro: No headache, focal weakness, tremor. Seizure disorder. Skin: No new skin changes or rash. Otherwise negative. PHYSICAL EXAMINATION: BP 120/82 Pulse 80 Resp 15 Wt 82.6 kg (182 lb) SpO2 94% BMI 26.88 kg/m Gen: No acute distress. Cooperative with examination. HEENT: Normocephalic. Sclera, conjunctiva clear. Oral hygeine and dentition good. No thrush. Resp: No stridor, accessory respiratory muscle use, supra-sternal or intercostal retractions. No wheezes, crackles. CV: Regular rythm. Heart tones normal. Radial pulses normal. Abd: Non distended. MSK: No kyphoscoliosis. Ext: Warm and well perfused. No clubbing, cyanosis, edema. Skin: No rash, ecchymoses. Neuro: Mental status normal. Affect normal. No tremor. DATA: PFT, 04/07/2023 PFT demonstrates severe obstruction. Diffusion capacity is normal. PFT, 08/07/2020 IMPRESSION: Spirometry indicates moderately severe obstruction. There is a significant bronchodilator response. LDCT chest, 01/05/2023 IMPRESSION: LungRADS category: 2 LungRADS modifier: None LungRADS 0 reason: n/a Recommendations: Continue annual screening with LDCT in 12 months. COMPARISON: Prior lung screen dated 10/09/2020 RESULT: Are nodules present? Yes, 1-5 nodules Other lung nodule comments: 4 mm subpleural right lower lobe nodule (204) unchanged. 4 mm right upper lobe nodule (1:30) unchanged. 4 mm left upper lobe nodule (153) unchanged. Few other scattered small nodules unchanged. No new nodules. Other findings: Moderate coronary calcifications. Mild degenerative changes of the thoracic spine. Bronchial thickening and mild upper lobe emphysema. ASSESSMENT/PLAN: 1. Stage 3 severe COPD by GOLD classification (HCC) - ICD9: 496, ICD10: J44.9 (primary diagnosis) Decline in FEV1 today most likely secondary to ongoing smoking. Patient would benefit from triple therapy, however, cost is an issue. I also looked into adding LAAC to current ICS/LABA, but patient declines. He states he is going to try to switch his insurance to a better plan once he is in open enrollment. Continue AirDuo twice daily with as needed Albuterol. Smoking cessation is critical. 2. Multiple lung nodules - ICD9: 793.19, ICD10: R91.8 Enrolled [place] cancer screening. Next LDCT January 2024. 3. Tobacco use current - ICD9: 305.1, ICD10: Z72.0 - Cessation encouraged. - Physiologic and physical aspects of tobacco addiction as well as strategies for quitting were discussed. - Counseling was given focusing on the harmful effects of this addiction especially given the patient's medical condition(s) which will be worsened because of the chemicals in tobacco. Portions of this documentation were copied and pasted from previous office visit notes in order to provide a cohesive continuity of the history. The note has been reviewed and edited and updated as necessary. Una Barrett PA-C documented in this encounter [facility] 04-07-2023 History of Present illness Narrative PULM FUNCTION SMARTBLOCK: Provider: Una Barrett PA-C Assisting Tech: Alberto Parikh RPFT Spirometry: 1 DLCO: 1 documented in this encounter [facility] 04-07-2023 Nurse Note Intake information documented in the prior visit with ALY Aldana today. documented in this encounter [facility] 02-23-2023 Miscellaneous Notes I sent in a script for AirDuo. It does not appear that any inhalers have great coverage with patients insurance. We may need to pursue prescription assistance options. Michelle Patient called. Verified name and date of . Patient attempted to refill medication, TRELEGY ELLIPTA, however it is now $400 and he cannot afford that a month. Patient is asking if there is a alternative? Please review and advise. Bri Vega LPN documented in this encounter [facility] 01-06-2023 Note HNO ID: [id number] Author: Una Barrett PA-C Service: ? Author Type: Physician Quality Assurance Tester Type: Progress Notes Filed: 01/06/2023 2:01 PM Note Text: Patient: Dee Dee PCP: No primary care provider on file. CC: COPD follow-up HPI: Dee Dee 67 year old male current 40 pack year smoker with PMH significant for severe COPD and seizure disorder who presents for follow-up visit. Patient has not been able to afford inhaled medications. Most recently seen by Dr. Perry on 06/12/2021. Patient has cancelled multiple appointments secondary to insurance changes. He is enrolled in lung cancer screening. LDCT 01/05/2023 demonstrated 1-5 nodules measuring up to 4 mm and unchanged when compared to LDCT 10/2020. Today, patient reports daily cough productive of white, clear phlegm. No hemoptysis. Frequent wheezing. 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 No lower extremity edema. Currently smoking 5-10 cigarettes daily (previously 1 ppd). Expresses interest in quitting. Dislikes nicotine lozenges. Previously quit for 10 years with Acupuncture. PAST MEDICAL HISTORY Diagnosis Date Conversion disorder COPD (chronic obstructive pulmonary disease) (HCC) Epilepsy (HCC) Lung nodules Allergies: No Known Allergies divalproex DR (DEPAKOTE) 500 mg EC tablet Take 1,000 mg by mouth twice daily. Cholecalciferol, Vitamin D3, (VITAMIN D) 25 mcg (1,000 unit) cap Take 1,000 Units by mouth once daily. albuterol (PROVENTIL) 2.5 mg /3 mL (0.083 %) nebulizer solution Use 3 mL via nebulizer every 4 hours as needed. OVER 5-15 MINUTES. FOR WHEEZING AND SHORTNESS OF BREATH. ibuprofen (MOTRIN) 600 mg tablet Take 1 tablet by mouth every 6 hours as needed. (Patient not taking: Reported on 06/12/2021 ) ibuprofen (MOTRIN) 600 mg tablet Take 1 tablet by mouth every 6 hours as needed. DEPAKOTE 125 MG TAB Take 250 mg by mouth twice daily. (Patient not taking: Reported on 01/05/2023) Social History Tobacco Use Smoking status: Every Day Packs/day: 1.50 Years: 40.00 Pack years: 60.00 Types: Cigarettes Smokeless tobacco: Never Tobacco comments: Started at 17- had quit in September 2020 but dealing with work stress, Quit for 10 years Substance Use Topics Alcohol use: Yes Comment: very little Drug use: No Family History Problem Relation Age of Onset Asthma Brother Asthma Brother Coronary Artery Disease Father Diabetes Mother Diabetes Sister Diabetes Brother Lung Cancer Brother Thyroid Brother PAST SURGICAL HISTORY Procedure Laterality Date TONSILLECTOMY AND ADENOIDECTOMY I reviewed the past medical history, family history, social history and surgical history with changes noted above and updated in EMR. IMMUNIZATIONS Prevnar - xx Pneumovax 23 - xx Influenza - xx COVID-19 - xx ROS: General: No fevers, chills or night sweats. No unintended weight loss. Eyes, Ears, nose, throat: No post nasal drip, rhinorrhea, purulent nasal discharge, epistaxis. No hoarseness. Vision stable. Cardiac: No angina, edema, orthopnea. Resp: See HPI. GI: No heartburn, dysphagia. Musculoskeletal: No pain. Neuro: No headache, focal weakness, tremor. Seizure disorder. Skin: No new skin changes or rash. Otherwise negative. PHYSICAL EXAMINATION: BP 160/92 Pulse 83 Resp 19 Wt 81.6 kg (180 lb) SpO2 96% BMI 26.58 kg/m? Gen: No acute distress. Cooperative with examination. HEENT: Normocephalic. Sclera, conjunctiva clear. Oral hygeine and dentition poor. Resp: No stridor, accessory respiratory muscle use, supra-sternal or intercostal retractions. No wheezes, crackles. CV: Regular rythm. Heart tones normal. Radial pulses normal. Abd: Non distended. MSK: No kyphoscoliosis. Ext: Warm and well perfused. No clubbing, cyanosis, edema. Skin: No rash, ecchymoses. Neuro: Mental status normal. Affect normal. No tremor. DATA: PFT, 08/07/2020 IMPRESSION: Spirometry indicates moderately severe obstruction. There is a significant bronchodilator response. LDCT chest, 01/05/2023 IMPRESSION: LungRADS category: 2 LungRADS modifier: None LungRADS 0 reason: n/a Recommendations: Continue annual screening with LDCT in 12 months. COMPARISON: Prior lung screen dated 10/09/2020 RESULT: Are nodules present? Yes, 1-5 nodules Other lung nodule comments: 4 mm subpleural right lower lobe nodule (204) unchanged. 4 mm right upper lobe nodule (1:30) unchanged. 4 mm left upper lobe nodule (153) unchanged. Few other scattered small nodules unchanged. No new nodules. Other findings: Moderate coronary calcifications. Mild degenerative changes of the thoracic spine. Bronchial thickening and mild upper lobe emphysema. ASSESSMENT/PLAN: 1. Stage 3 severe COPD by GOLD classification ([facility]) - ICD9: 496, ICD10: J44.9 (primary diagnosis) Start Trelegy Ellipta 1 inhalation daily. Rinse mouth after each use to (more content not included)... [facility] 01-06-2023 Instructions Una Barrett PA-C - 01/06/2023 1:26 PM EDT Trelegy 1 inhalation daily every morning. Rinse mouth after each use to help prevent oral thrush. Albuterol HFA inhaler, 2 inhalations 10-15 minutes prior to activities associated with shortness of breath, and as needed for rescue relief of shortness of breath or wheezing, up to 4 times daily. Wellbutrin 1 tablet daily for 3 days, then increase to 1 tablet twice daily. Nicotine patches: 21 mg x 4 weeks 14 mg x 4 weeks 7 mg x 4 weeks SMOKING CESSATION Stopping smoking is the most important thing you can do to protect your current and future health, as well as that of your family. It is the most potent risk factor for the future development of coronary artery disease and heart attacks. Smoking is both an addiction and a learned behavior. The nicotine withdrawal takes anywhere from 2-4 weeks and results in symptoms such as irritability, fatigue, insomnia, coughing, dizziness, poor concentration, hunger and cigarette cravings. After the nicotine withdrawal period, the learned linkage between certain acts or situations and cigarette use remain. Strategies to deal with these must be developed along with new behaviors to ensure successful smoking cessation. STRATEGIES TOWARD SMOKING CESSATION - Make a list of the reasons why you want to quit, plus the benefits to be gained, and compare them to the reasons why you should continue to smoke. - Pick a specific quit date. - If you are interested in using nicotine patches or gum to assist with the nicotine withdrawal, let the staff know. - Inform friends, family, and co-workers that you are quitting and when your quit date is. Ask for their understanding and support. - Prepare your environment by removing all cigarettes prior to your quit date. - Prior to your quit date, avoid smoking in places where you spend a lot of time (such as the house, work, car). - From previous quit attempts, identify what helped you to stop smoking. - From previous quit attempts, identify what triggered relapse. How can you avoid that again? - What things (situations, emotions) do you anticipate will be most challenging, especially in the first few weeks, to your quitting effort? - What can you do to address these challenges? - Avoid (or limit) alcohol consumption during the quitting process. - If your spouse or close coworker currently smoke, consider quitting together or at the very least, develop specific plans to maintain your cigarette abstinence while in the home or at work. - Take each day, each hour, each craving, one at a time. Every step or action you take toward smoking cessation is a success. The only failure is the failure to try. - The health of you and your family, is worth the effort. STOP SMOKING CHECK LIST Preparing to Quit: ___ Make a personal pact with yourself to quit. ___ Pick a date for quitting completely. (My date to quit is ____.) ___ Write down on a card the three most important reasons for quitting. Carry the card with you from now on. Look at it several times a day. ___ Prior to quitting, eliminate smoking completely in 2 or 3 of your high risk situations. ___ Reduce consumption to one pack per day or less. ___ Change to a less desirable brand of cigarettes. ___ Discard your law office receptionist. Use matches. Carry your cigarettes in a different place. ___ Spend a little time each day picturing in your mind stressful events occurring in the future and you not smoking. Actual Quitting: The First Two Weeks ___ Get rid of all cigarettes. Put away all smoking related objects such as ashtrays. Ask the people you live with not to smoke in your presence for the first two weeks. ___ Spend as much time as possible with non-smoking people. ___ Keep busy, especially on evenings and weekends. ___ Avoid high risk situations (large parties, bars, etc.). ___ Spend lots of time in places that prohibit or discourage smoking (e.g., theaters, libraries.) ___ Drink plenty of fluids. ___ Don't substitute food or sugar based products for cigarettes. Use approved substitutions. (... ice water, high bulk/low calorie foods, sugarless gum, mouthwash, brushing teeth.) ___ Begin or increase regular exercise program. ___ When experiencing withdrawal effects: 1. Remind yourself why you are quitting (from your card). 2. Remind yourself that whatever discomfort you are experiencing is only a tiny fraction of the probable discomfort associated with continued smoking. 3. Practice deep breathing or other relaxation techniques - tapes. ___ Remind yourself that you can free yourself from this unhealthy, expensive, messy habit and become a non-smoker. Maintenance of Quitting: After two weeks ___ Remind yourself that the desire to smoke is linked to a great many situations, people and emotional stress. ___ When you do have a desire to smoke, remember that it only lasts a few seconds: distract yourself and leave the situation if necessary. ___ After each desire to smoke has passed, pat yourself on the back, you have just made progress in breaking the habit forever. ___ Save the money on wasted on cigarettes in a special fund and buy yourself something nice. Maintenance of Quitting: After Two Months ___ Be particularly vigilant when unusual life events occur. (.. weddings, holidays, vacations.) ___ Be particularly vigilant when stressful life events occur (e.g., relationship problems, financial or work problems.) ___ Remind yourself regularly that not smoking is completely within your personal control. ___ Never lull yourself into thinking you are out of danger and you can safely have a cigarette or two. -- you cannot!!!!! ___ If, by chance, you do slip and have one or more cigarettes, do not conclude that all is lost . Return to complete abstinence immediately and learn from your experience. ___ If you have gained significant weight since quitting, now is the time to do something about it. ___ Each time you see a cigarettes advertisement, remind yourself of why you quit. Also remember that a [employer] spends billions of dollars each year trying to get people like yourself re-hooked . Bupropion What is this medicine? BUPROPION is a smoking cessation aid. It can also be used to treat mood disorders such as depression. Common brand names for bupropion include Zyban and Wellbutrin . What should I tell my health care provider before I take this medicine? Tell your health care provider what health conditions you have, including (but not limited to): an eating disorder, such as anorexia or bulimia head injury or brain tumor seizures suicidal thoughts or a previous suicide attempt How should I use this medicine? You can take this medicine with or without food. Swallow your tablet whole (do not crush, chew, or divide). Where should I keep my medicine? Keep out of the reach of children. Store at room temperature, away from light and moisture. Throw away any unused medicine after the expiration date. What may interact with this medicine? A number of medications can interact with bupropion. Do not take this medicine with any of the following medications: linezolid MAOIs such as Azilect , Eldepryl , Marplan , Nardil , and Parnate methylene blue (injected into a vein) other medicines that contain bupropion This list does not describe all possible interactions. Give your health care provider a list of all the medicines, herbs, non-prescription drugs, or dietary supplements you use. Also tell them if you smoke, drink alcohol, or use illegal drugs. Some of these substances may interact with your medicine. What should I watch for while using this medicine? Tell your health care provider if you are unable to quit smoking after seven weeks of taking bupropion. Visit your health care provider for regular checks on your progress. Watch out for new or worsening thoughts of suicide or depression. Also watch out for sudden changes in feelings such as feeling anxious, agitated, panicky, irritable, hostile, aggressive, impulsive, severely restless, overly excited and hyperactive, or not being able to sleep. If this happens, especially at the beginning of treatment or after a change in dose, call your health care provider. Avoid alcoholic drinks while taking this medicine. Drinking excessive alcoholic beverages, using sleeping or anxiety medicines, or quickly stopping the use of these agents while taking this medicine may increase your risk for a seizure. Do not drive or use heavy machinery until you know how this medicine affects you. This medicine can impair your ability to perform these tasks. Do not take this medicine close to bedtime. It may prevent you from sleeping. Your mouth may get dry. Chewing sugarless gum or sucking hard candy, and drinking plenty of water may help. What side effects may I notice from receiving this medicine? Notify your health care provider if you notice any side effects from taking this medication. Possible side effects include fast or irregular heartbeat, difficulty sleeping, headache, agitation, dizziness, sweating, weight loss, dry mouth, constipation, nausea, vomiting, tremor, and blurred vision. Seek medical attention right away if you have an allergic reaction like skin rash, itching or hives, swelling of the face, lips, or tongue, or breathing problems after taking bupropion. Watch for changes in mood and increased blood pressure. Notify health care provider immediately if you have a seizure while taking this medication. This list does not describe all possible side effects. Contact your health care provider or pharmacist for medical advice about side effects. This sheet is a summary and does not cover all possible information. A Medication Guide will be given to you with each prescription. Read the information carefully. If you have additional questions about this medicine, talk to your healthcare provider or pharmacist. You may ask your primary care provider for a referral to a clinical pharmacist for a comprehensive review of all your medications. Nicotine Patch What is this medicine? NICOTINE helps people stop smoking. This medicine replaces the nicotine found in cigarettes and helps to decrease withdrawal effects. It is most effective when used in combination with a stop-smoking program. A common brand name for nicotine patch includes Nicoderm . What should I tell my health care provider before I take this medicine? Tell your health care provider what health conditions you have, including (but not limited to): skin problems, like eczema an unusual or allergic reaction to adhesives heart disease, angina, irregular heartbeat or recent heart attack high blood pressure diabetes overactive thyroid pheochromocytoma How should I use this medicine? Find an area of skin on your upper arm, chest, or back that is clean, dry, and hairless. Remove the patch from the sealed pouch. Remove the backing from the patch and the press the patch firmly in place for 10 seconds to make sure that there is good contact with your skin. After applying the patch, wash your hands. The patch can be worn for 16 to 24 hours. Change the patch every day, keeping to a regular schedule. Do not wear more than 1 patch at a time. Discard patch by folding adhesive ends together, replacing in pouch, and disposing in the trash. When you apply a new patch, use a new area of skin to minimize risk of skin irritation. Do not cut or trim the patch as the nicotine will evaporate and the patch will not work. Where should I keep my medicine? Keep out of the reach of children. Store at room temperature in dishing machine operator s packaging until ready to use. Throw away unused medicine after the expiration date. What may interact with this medicine? Give your health care provider a list of all the medicines, herbs, non-prescription drugs, or dietary supplements you use. Also tell them if you smoke, drink alcohol, or use illegal drugs. Some substances may interact with your medicine. What should I watch for while using this medicine? You should begin using the nicotine patch the day you stop smoking. It is okay if you do not succeed at your attempt to quit and have a cigarette. You can still continue your quit attempt and keep using the product as directed. Just throw away your cigarettes and get back to your quit plan. Stop using the patch and notify your health care provider if you experience redness from the patch that does not resolve after 4 days, or if inflammation or rash occurs. If you experience vivid dreams or difficulty sleeping, remove the patch and bedtime and apply another patch in the morning. You can keep the patch in place during swimming, bathing, and showering. If your patch falls off during these activities, replace it. If you are going to have a magnetic resonance imaging (MRI) procedure, tell your equipment technician if you have this patch on your body. It must be removed before an MRI as it may contain conducting metal. What side effects may I notice from receiving this medicine? Notify your health care provider if you notice any side effects from taking this medication. Possible side effects include headache, application site redness and irritation, abnormal dreams, or sleep disturbance. Seek medical attention right away if you have an allergic reaction like skin rash, itching or hives, swelling of the face, lips, or tongue, or breathing problems after taking nicotine gum. Watch for changes in heart rate or increased blood pressure. This list does not describe all possible side effects. Contact your health care provider or pharmacist for medical advice about side effects. This sheet is a summary and does not cover all possible information. If you have additional questions about this medicine, talk to your healthcare provider or pharmacist. You may ask your primary care provider for a referral to a clinical pharmacist for a comprehensive review of all your medications. documented in this encounter [facility] 01-06-2023 History of Present illness Narrative Images from the original note were not included. Patient: Dee Dee PCP: No primary care provider on file. CC: COPD follow-up HPI: Dee Dee 67 year old male current 40 pack year smoker with PMH significant for severe COPD and seizure disorder who presents for follow-up visit. Patient has not been able to afford inhaled medications. Most recently seen by Dr. Perry on 06/12/2021. Patient has cancelled multiple appointments secondary to insurance changes. He is enrolled in lung cancer screening. LDCT 01/05/2023 demonstrated 1-5 nodules measuring up to 4 mm and unchanged when compared to LDCT 10/2020. Today, patient reports daily cough productive of white, clear phlegm. No hemoptysis. Frequent wheezing. 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 No lower extremity edema. Currently smoking 5-10 cigarettes daily (previously 1 ppd). Expresses interest in quitting. Dislikes nicotine lozenges. Previously quit for 10 years with Acupuncture. PAST MEDICAL HISTORY Diagnosis Date Conversion disorder COPD (chronic obstructive pulmonary disease) (HCC) Epilepsy (HCC) Lung nodules Allergies: No Known Allergies divalproex DR (DEPAKOTE) 500 mg EC tablet Take 1,000 mg by mouth twice daily. Cholecalciferol, Vitamin D3, (VITAMIN D) 25 mcg (1,000 unit) cap Take 1,000 Units by mouth once daily. albuterol (PROVENTIL) 2.5 mg /3 mL (0.083 %) nebulizer solution Use 3 mL via nebulizer every 4 hours as needed. OVER 5-15 MINUTES. FOR WHEEZING AND SHORTNESS OF BREATH. ibuprofen (MOTRIN) 600 mg tablet Take 1 tablet by mouth every 6 hours as needed. (Patient not taking: Reported on 06/12/2021 ) ibuprofen (MOTRIN) 600 mg tablet Take 1 tablet by mouth every 6 hours as needed. DEPAKOTE 125 MG TAB Take 250 mg by mouth twice daily. (Patient not taking: Reported on 01/05/2023) Social History Tobacco Use Smoking status: Every Day Packs/day: 1.50 Years: 40.00 Pack years: 60.00 Types: Cigarettes Smokeless tobacco: Never Tobacco comments: Started at 17- had quit in September 2020 but dealing with work stress, Quit for 10 years Substance Use Topics Alcohol use: Yes Comment: very little Drug use: No Family History Problem Relation Age of Onset Asthma Brother Asthma Brother Coronary Artery Disease Father Diabetes Mother Diabetes Sister Diabetes Brother Lung Cancer Brother Thyroid Brother PAST SURGICAL HISTORY Procedure Laterality Date TONSILLECTOMY & ADENOIDECTOMY <AGE 14 I reviewed the past medical history, family history, social history and surgical history with changes noted above and updated in EMR. IMMUNIZATIONS Prevnar - xx Pneumovax 23 - xx Influenza - xx COVID-19 - xx ROS: General: No fevers, chills or night sweats. No unintended weight loss. Eyes, Ears, nose, throat: No post nasal drip, rhinorrhea, purulent nasal discharge, epistaxis. No hoarseness. Vision stable. Cardiac: No angina, edema, orthopnea. Resp: See HPI. GI: No heartburn, dysphagia. Musculoskeletal: No pain. Neuro: No headache, focal weakness, tremor. Seizure disorder. Skin: No new skin changes or rash. Otherwise negative. PHYSICAL EXAMINATION: BP 160/92 Pulse 83 Resp 19 Wt 81.6 kg (180 lb) SpO2 96% BMI 26.58 kg/m Gen: No acute distress. Cooperative with examination. HEENT: Normocephalic. Sclera, conjunctiva clear. Oral hygeine and dentition poor. Resp: No stridor, accessory respiratory muscle use, supra-sternal or intercostal retractions. No wheezes, crackles. CV: Regular rythm. Heart tones normal. Radial pulses normal. Abd: Non distended. MSK: No kyphoscoliosis. Ext: Warm and well perfused. No clubbing, cyanosis, edema. Skin: No rash, ecchymoses. Neuro: Mental status normal. Affect normal. No tremor. DATA: PFT, 08/07/2020 IMPRESSION: Spirometry indicates moderately severe obstruction. There is a significant bronchodilator response. LDCT chest, 01/05/2023 IMPRESSION: LungRADS category: 2 LungRADS modifier: None LungRADS 0 reason: n/a Recommendations: Continue annual screening with LDCT in 12 months. COMPARISON: Prior lung screen dated 10/09/2020 RESULT: Are nodules present? Yes, 1-5 nodules Other lung nodule comments: 4 mm subpleural right lower lobe nodule (204) unchanged. 4 mm right upper lobe nodule (1:30) unchanged. 4 mm left upper lobe nodule (153) unchanged. Few other scattered small nodules unchanged. No new nodules. Other findings: Moderate coronary calcifications. Mild degenerative changes of the thoracic spine. Bronchial thickening and mild upper lobe emphysema. ASSESSMENT/PLAN: 1. Stage 3 severe COPD by GOLD classification ([facility]) - ICD9: 496, ICD10: J44.9 (primary diagnosis) Start Trelegy Ellipta 1 inhalation daily. Rinse mouth after each use to help prevent oral thrush. Provided a coupon for the first month. Albuterol HFA inhaler, 2 inhalations 10-15 minutes prior to activities associated with shortness of breath, and as needed for rescue relief of shortness of breath or wheezing, up to 4 times daily. Smoking cessation is critical. Will obtain PFTs and diffusion at next office visit. - ALBUTEROL SULFATE HFA 90 MCG/ACTUATION AEROSOL INHALER - FLUTICASONE FUR. 100 MCG-UMECLID 62.5 MCG-VILANT 25 MCG INHALAT.POWDER - SPIROMETRY BASELINE ONLY - LUNG DIFFUSION CAPACITY ([facility]) 2. Multiple lung nodules - ICD9: 793.19, ICD10: R91.8 Enrolled in lung cancer screening program. Next LDCT scheduled for January 2024. 3. Tobacco use current - ICD9: 305.1, ICD10: Z72.0 - Cessation encouraged. - Physiologic and physical aspects of tobacco addiction as well as strategies for quitting were discussed. - Counseling was given focusing on the harmful effects of this addiction especially given the patient's medical condition(s) which will be worsened because of the chemicals in tobacco. - BUPROPION HCL SR 150 MG TABLET,12 HR SUSTAINED-RELEASE - BUPROPION HCL SR 150 MG TABLET,12 HR SUSTAINED-RELEASE - NICOTINE 21 MG/24 HR DAILY TRANSDERMAL PATCH - NICOTINE 14 MG/24 HR DAILY TRANSDERMAL PATCH - NICOTINE 7 MG/24 HR DAILY TRANSDERMAL PATCH 4. Cigarette nicotine dependence without complication - ICD9: 305.1, ICD10: F17.210 - Cessation encouraged. - Physiologic and physical aspects of tobacco addiction as well as strategies for quitting were discussed. - Counseling was given focusing on the harmful effects of this addiction especially given the patient's medical condition(s) which will be worsened because of the chemicals in tobacco. Do not recommend Chantix with seizure history. Will start Bupropion 1 tablet for 3 days, then increase to 1 tablet twice daily. Nicotine patches as directed: 21 mg x 4 weeks 14 mg x 4 weeks 7 mg x 4 weeks - BUPROPION HCL SR 150 MG TABLET,12 HR SUSTAINED-RELEASE - BUPROPION HCL SR 150 MG TABLET,12 HR SUSTAINED-RELEASE - NICOTINE 21 MG/24 HR DAILY TRANSDERMAL PATCH - NICOTINE 14 MG/24 HR DAILY TRANSDERMAL PATCH - NICOTINE 7 MG/24 HR DAILY TRANSDERMAL PATCH Portions of this documentation were copied and pasted from previous office visit notes in order to provide a cohesive continuity of the history. The note has been reviewed and edited and updated as necessary. Una Barrett PA-C documented in this encounter [facility] 01-05-2023 Note HNO ID: [id number] Author: Daniel Schmitz APRN.GROUP DIRECTOR Service: ? Author Type: Nurse Practitioner Type: Progress Notes Filed: 01/05/2023 2:52 PM Note Text: [facility] Lung Cancer Screening Annual Visit Chief Complaint: Established patient in lung cancer screening program here for annual follow-up. Current or Ex-smoker? [Current Exam Type: annual LDCT Number of Pack Years: 60 Current smoker (=0) The patient's smoking history is similar to prior year shared decision visit. Impression / Recommendations Dee Walker Luiz presents for annual lung cancer screening annual exam and nodule evaluation. Plan: Indeterminate pulmonary nodules: Previously identified nodules appear stable and no new nodules of concern were seen on the exam. Low dose CT Scan to be repeated in one year. Plan subject to change pending final radiology report and recommendations. Nature of the lung nodule(s) and the options for further evaluation discussed in detail with patient. Dee Walker Luiz expressed understanding and is in agreement with plan. 2. Encounter for screening for malignant neoplasm of respiratory organs I have determined that the patient is eligible for continued low dose CT screening based on age, absence of signs or symptoms of lung cancer, smoking history and total pack years. The patient was counseled on the importance of adherence to annual LDCT lung cancer screening, impact of comorbidities and ability or willingness to undergo diagnosis and treatment. The patient understands and feels comfortable with it: Yes. 3. Personal History of Nicotine Dependence The patient was counseled on the importance of smoking cessation if current smoker and, if appropriate, offered additional tobacco cessation counseling services - Smoking Cessation Counseling. SMOKING CESSATION COUNSELING Smoking cessation methods including Nicotine Replacement Therapies and Behavior Modification were discussed with the patient and assistance offered. Has tried lozenges and they tasted terrible. The medical conditions adversely affected by cigarette use include:COPD, Emphysema, and Lung Cancer. Counseled on benefits of quitting smoking, recommended cessation or reduction to prevent development and/or progression of emphysema. The patient is currently not ready to quit. I personally spent 3 minutes in counseling. The time spent in smoking cessation counseling is exclusive of any other counseling during this visit. Daniel Schmitz APRN.[facility] January 05, 2023 1:47 PM History of Present Illness: Dee Dee is a 67 year old male who is presenting today for annual lung cancer screening LDCT and nodule surveillance/management. Patient has multiple nodules found on lung cancer screening LDCT. Last LDCT was performed on 10/09/2020 and was LUNG RADS Category 2. Previous potentially significant incidental findings on imaging: Moderate LAD calcifications Patient is a current active smoker with a 60 pack year history. Patient is currently still smoking 10 cigarettes daily. Patient will continue to be eligible for lung cancer screening until age 79. The patient does not have any symptoms or signs of lung cancer. Patient SOB with their daily activity. 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 Has wheezing daily. Patient denies feeling of chest tightness/congestion in the chest. Patient does not have a new or concerning cough, and denies hemoptysis. Patient does have a chronic daily cough, has difficulty bringing up sputum. Denies regular or recent fevers/chills. Patient does not have any significant unintentional weight loss. Patient denies having any respiratory infections or COVID-19 in the past few months. Does not use any maintenance inhaler for COPD. Has appt tomorrow 01/06/2023 with physiatrist to get re-established. Has new insurance and can be seen by local pulmonology again. Would like to try to get long acting inhaler. Using albuterol nebulizer a couple times a day. Is almost out. ECOG PERFORMANCE STATUS: 1- Restricted in physically strenuous activity. Carries out light duty. Last 12 Encounter Wt Readings: Date: Wt: 01/05/2023 81.6 kg (180 lb) 06/12/2021 83.9 kg (185 lb) 06/07/2021 84.4 kg (186 lb) 01/23/2021 84.8 kg (187 lb) 10/07/2020 85.7 kg (189 lb) 09/25/2020 85.7 kg (189 lb) 08/07/2020 84.8 kg (187 lb) 08/07/2020 85 kg (187 lb 6.4 oz) 06/30/2018 76.2 kg (168 lb) 10/03/2015 90.7 kg (200 lb) 11/27/2014 90.7 kg (200 lb) 07/02/2011 84.8 kg (187 lb) Family Hx: FAMILY HISTORY Problem Relation Age of Onset Asthma Brother Asthma Brother Coronary Artery Disease Father Diabetes Mother Diabetes Sister Diabetes Brother Lung Cancer Brother Thyroid Brother Past Medical History: PAST MEDICAL HISTO (more content not included)... [facility] 01-05-2023 Note HNO ID: [id number] Author: RT Miguel(R) Service: ? Author Type: Charcoal Unloader Type: Progress Notes Filed: 01/05/2023 2:11 PM Note Text: Radiology Service Progress Note PATIENT NAME: Dee Dee DATE OF SERVICE: January 05, 2023 TIME: 2:11 PM PATIENT IDENTITY VERIFICATION COMPLETED USING TWO (2) IDENTIFIERS: Name and Date of confirmed by patient verbally. FALL SCREENING: Has the patient had 2 falls in the last year or 1 fall with injury or currently using an Ambulatory Assistive Device (Walker, Cane, Wheelchair, Crutches, etc.)? No PATIENT GENDER DATA: Male PATIENT RELEVANT IMPLANT DATA REVIEWED: Yes RADIOLOGY DEPARTMENT: CT; Exam(s) Completed: Chest PERIPHERAL IV DATA: Not applicable SIGNED BY: RT Hoang(R) January 05, 2023 2:11 PM [facility] 01-05-2023 Instructions Daniel Schmitz APRN.GROUP DIRECTOR - 01/05/2023 2:[address] Lung Screen Results The CT scan that you will have done will show if you have any nodules (small spots) in your lungs that are suspicious for cancer. Around 90% of the patients who have this scan done are found to have at least one nodule. Most nodules are benign (not cancer) and of no harm to you at all. A specialist will make a scientific evaluation about whether or not a nodule is worrisome based on its size and shape. The radiologist who will read your scan will put it into one of four categories: LUNG-RADS Category Description Overall Probability of Malignancy Recommended Follow-Up 1 Negative No nodules and definitely benign (non-cancerous nodules) Essentially 0. 1 Year - Follow-up Low dose CT 2 Benign Appearance or Behavior Nodules with a very low likelihood of becoming cancer due to size or lack of growth Less than 1% 1 Year - Follow-up Low dose CT 3 Probably Benign Probably benign finding, short term follow-up recommended 1 to 2% 6 Months - Follow-up CT 4 A,B,or X Suspicious Findings for which additional diagnostic testing and/or biopsy is recommended Will be calculated based on nodule characteristics. Dependent on what is seen on the exam. [address], PET, Biopsy At times, we may see something outside of the lungs on the scan that could be a health concern. Below are some of the most common findings: S Clinically Significant or Potentially Clinically Significant Findings (non lung cancer) Referral or additional imaging/labs depending on result. Approximately 10% of people receive this result. Coronary Artery Calcifications (Moderate or Severe) - Referral to cardiology or PCP for further work-up and recommendations. Thyroid Nodule - TSH level and Thyroid Ultrasound dependent on size, referral to endocrinology. Adrenal Nodule - Blood work and referral to endocrinology. Others Lung Cancer Screening hotline: [phone] Lung Cancer Screening [phone] Billing Questions: or [email or web address]ening Team: Dolly Munson CNP; Edelmira Cain PA-C; Bri Manriquez CNP; Shara Rose CNP, Valeria Reinoso PA-C, Anabelle White PA-C, Daniel Schmitz, GROUP DIRECTOR : [phone] documented in this encounter [facility] 01-05-2023 History of Present illness Narrative Images from the original note were not included. [facility] Lung Cancer Screening Annual Visit Chief Complaint: Established patient in lung cancer screening program here for annual follow-up. Current or Ex-smoker? [Current Exam Type: annual LDCT Number of Pack Years: 60 Current smoker (=0) The patient's smoking history is similar to prior year shared decision visit. Impression / Recommendations Dee Dee presents for annual lung cancer screening annual exam and nodule evaluation. Plan: Indeterminate pulmonary nodules: Previously identified nodules appear stable and no new nodules of concern were seen on the exam. Low dose CT Scan to be repeated in one year. Plan subject to change pending final radiology report and recommendations. Nature of the lung nodule(s) and the options for further evaluation discussed in detail with patient. Dee Dee expressed understanding and is in agreement with plan. 2. Encounter for screening for malignant neoplasm of respiratory organs I have determined that the patient is eligible for continued low dose CT screening based on age, absence of signs or symptoms of lung cancer, smoking history and total pack years. The patient was counseled on the importance of adherence to annual LDCT lung cancer screening, impact of comorbidities and ability or willingness to undergo diagnosis and treatment. The patient understands and feels comfortable with it: Yes. 3. Personal History of Nicotine Dependence The patient was counseled on the importance of smoking cessation if current smoker and, if appropriate, offered additional tobacco cessation counseling services - Smoking Cessation Counseling. SMOKING CESSATION COUNSELING Smoking cessation methods including Nicotine Replacement Therapies and Behavior Modification were discussed with the patient and assistance offered. Has tried lozenges and they tasted terrible. The medical conditions adversely affected by cigarette use include:COPD, Emphysema, and Lung Cancer. Counseled on benefits of quitting smoking, recommended cessation or reduction to prevent development and/or progression of emphysema. The patient is currently not ready to quit. I personally spent 3 minutes in counseling. The time spent in smoking cessation counseling is exclusive of any other counseling during this visit. Daniel Schmitz APRN.[facility] January 05, 2023 1:47 PM History of Present Illness: Dee Dee is a 67 year old male who is presenting today for annual lung cancer screening LDCT and nodule surveillance/management. Patient has multiple nodules found on lung cancer screening LDCT. Last LDCT was performed on 10/09/2020 and was LUNG RADS Category 2. Previous potentially significant incidental findings on imaging: Moderate LAD calcifications Patient is a current active smoker with a 60 pack year history. Patient is currently still smoking 10 cigarettes daily. Patient will continue to be eligible for lung cancer screening until age 79. The patient does not have any symptoms or signs of lung cancer. Patient SOB with their daily activity. 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 Has wheezing daily. Patient denies feeling of chest tightness/congestion in the chest. Patient does not have a new or concerning cough, and denies hemoptysis. Patient does have a chronic daily cough, has difficulty bringing up sputum. Denies regular or recent fevers/chills. Patient does not have any significant unintentional weight loss. Patient denies having any respiratory infections or COVID-19 in the past few months. Does not use any maintenance inhaler for COPD. Has appt tomorrow 01/06/2023 with physiatrist to get re-established. Has new insurance and can be seen by local pulmonology again. Would like to try to get long acting inhaler. Using albuterol nebulizer a couple times a day. Is almost out. ECOG PERFORMANCE STATUS: 1- Restricted in physically strenuous activity. Carries out light duty. Last 12 Encounter Wt Readings: Date: Wt: 01/05/2023 81.6 kg (180 lb) 06/12/2021 83.9 kg (185 lb) 06/07/2021 84.4 kg (186 lb) 01/23/2021 84.8 kg (187 lb) 10/07/2020 85.7 kg (189 lb) 09/25/2020 85.7 kg (189 lb) 08/07/2020 84.8 kg (187 lb) 08/07/2020 85 kg (187 lb 6.4 oz) 06/30/2018 76.2 kg (168 lb) 10/03/2015 90.7 kg (200 lb) 11/27/2014 90.7 kg (200 lb) 07/02/2011 84.8 kg (187 lb) Family Hx: FAMILY HISTORY Problem Relation Age of Onset Asthma Brother Asthma Brother Coronary Artery Disease Father Diabetes Mother Diabetes Sister Diabetes Brother Lung Cancer Brother Thyroid Brother Past Medical History: PAST MEDICAL HISTORY Diagnosis Date Conversion disorder COPD (chronic obstructive pulmonary disease) (HCC) Epilepsy (HCC) Lung nodules Surgical Hx: PAST SURGICAL HISTORY Procedure Laterality Date TONSILLECTOMY & ADENOIDECTOMY <AGE 14 Allergies: ALLERGIES No Known Allergies Social History Tobacco Use: 1.5 packs/day, for 38 years. Types: Cigarettes Review Of Systems: See HPI for ROS All of the remainder systems were reviewed and negative. PHYSICAL EXAMINATION: BP 162/100 Pulse 93 Resp 16 Wt 180 lb (81.6kg) SpO2 97% General appearance: well appearing, in no acute distress, and alert Skin: skin color, texture, turgor normal, no rashes or lesions Nose/Sinuses: Negative Oropharynx: Lips, mucosa, and tongue normal, teeth and gums normal, oropharynx normal Neck: Supple, normal ROM Respiratory:Expiratory wheezing Musculoskeletal: Extremities normal. No deformities, edema, or skin discoloration. Neuro: Oriented X 3 Data Review I have visually reviewed imaging and testing below CT imaging done today was reviewed independently and compared to prior CT chest imaging by practitioner and awaiting radiology review. Pt had multiple previously seen lung nodules <6 mm, that are stable in size. x2 new 1-2 mm nodules in LLL on slice 130 series 5. Imaging ([id number]) Male 1955 10/09/2020 5:46 PM - Radiology, [place] In Impression IMPRESSION: LungRADS category: 2 LungRADS modifier: Significant other (S), coronary artery calcification, moderate or severe LungRADS 0 reason: n/a Recommendations: Continue annual screening with LDCT in 12 months. Other actionable findings: Reference: [employer]. Lung CT Screening Reporting and Data System (Lung-RADS). Available at: http://www.acr.org/Quality-Safet y/Resources/LungRADS Director Supply Chain: EVANGELIST Transcribe Date/Time: Oct 09 2020 5:25P Dictated by : HERNANDEZ RICHEY MD This examination was interpreted and the report reviewed and electronically signed by: HERNANDEZ RICHEY MD on Oct 09 2020 5:44PM EST Results-Findings * * *Final Report* * * DATE OF EXAM: Oct 09 2020 3:55PM [facility] [place] 0562 - CT LUNG SCREEN WO IVCON / PROCEDURE REASON: Z72.0-Tobacco use * * * * Physician Interpretation * * * * EXAMINATION: CHEST CT WITHOUT CONTRAST (LOW-DOSE CT LUNG CANCER SCREENING PROTOCOL) CLINICAL HISTORY: Lung cancer LDCT screening ? absence of signs or symptoms of lung cancer. Personal history of nicotine dependence. Baseline (initial) Technique: Spiral CT acquisition of the chest from the thoracic inlet to the upper abdomen without contrast. MQ: CTLCS_6 Patient characteristics: * [id number]: 1955; Age at exam: 65 years * Gender: Male * Lung Disease: Asymptomatic (no signs or symptoms of lung disease) * Number of Pack Years: 57 * Current smoker (=0) or Number of Years since Quit: 1 * Ordering provider and NPI: DOLLY MUNSON [id number] * Interpreting radiologist and NPI: Solitario [id number] Exam acquisition parameters: * Exam Date: 10/09/2020 3:55 PM * Site: [facility] * * CT System Swimmer: Needbox AS * CT System Model: Dual Source * Tube Current-Time (mA-sec): 40 * Peak Voltage (kV): 120 * Scan Time (sec): 6.05 * Scan Volume (z-length, cm): 32.05 * Pitch: 1.0 * Slice Thickness (mm): 1.5 * CT Dose-Length Product: 100 mGy*cm * CT Dose Index: 2.86mGy * CT Dose Reduction Method: mAs-kVp adjusted based on patient size-age COMPARISON: No prior CT chest is available for comparison. RESULT: Please note this exam could not be processed by CAD. Are nodules present? Yes, 6 or more nodules If No, go to IMPRESSION. If yes, proceed with characterization of the FIVE largest nodules. Nodule 1: This solid nodule is located in the right upper lobe on slice number 143 with an average diameter of 4 mm Nodule 2: This solid nodule is located in the right lower lobe on slice number 212 with an average diameter of 4 mm Nodule 3: This solid nodule is located in the left upper lobe on slice number 163 with an average diameter of 4 mm Nodule 4: This solid nodule is located in the right upper lobe on slice number 112 with an average diameter of 3 mm Nodule 5: This solid nodule is located in the right upper lobe on slice number 150 with an average diameter of 3 mm If this is an ANNUAL LDCT for LCS, please ensure nodule number is the same as in the prior evaluation. Other lung nodule comments: Additional small (less than 4 mm) pulmonary nodules are seen. For reference, a 2 mm right upper lobe nodule (image 118), a 3 mm right middle lobe nodule (image 206) a 2 mm nodule in the right middle lobe (image 249). Other findings: The central airways are patent without evidence of endobronchial lesion. Trivial upper lobe paraseptal emphysema with diffuse bronchial wall thickening is seen. Mild biapical scarring is likely postinflammatory. There is no acute focal lung consolidation. There is no pleural effusion or pneumothorax. No enlarged supraclavicular, axillary, mediastinal or hilar lymph nodes are seen. The thyroid gland is unremarkable. The esophagus is nondilated. The aorta and main pulmonary artery are normal in course and caliber. Minimal atherosclerotic calcifications are seen in the aortic arch. The heart size is normal. There is no pericardial effusion. The soft tissues of the chest wall are unremarkable. The visible portion of the upper abdomen is unremarkable. No destructive bone lesion is seen. Mild degenerative changes are seen in the thoracic spine. Emphysema: Trivial (less than 5%), paraseptal, upper lobe Coronary Artery Calcifications: Circumflex mild; Left Anterior Descending moderate; Right Coronary mild Director Supply Chain (topogram) images: No additional findings. Last CT Chest - Impression Only No resulted procedures found. Last XR Chest - Impression Only No resulted procedures found. 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 Interpretive Statements ATS/ERS acceptability and repeatability standards for spirometry met. 2 Puffs of albuterol (180mcg) delivered by MDI via Aerochamber HRpre = 88/min, HRpost=88/min. IMPRESSION: Spirometry indicates moderately severe obstruction. There is a significant bronchodilator response. Electronically Signed On 08-08-2020 14:17:37 EST by Tasia Perry M.D. Site: WO ID: [id number] Name: DEE DEE Visit Date: 08/07/2020 Second ID: [id number] Referring Doctor: Kiran PERRY Charcoal Unloader: ALBERTO Aceves Age: 65 : 1955 Sex: Male Race: Height: 68.50 Inches Weight: 187.40 Lbs BSA: 2.00 Order IDs: [id number] Requested Test(s): Spirometry with dilator if obstructed Post Test Comments: ATS/ERS acceptability and repeatability standards for spirometry met. 2 Puffs of albuterol (180mcg) delivered by MDI via Aerochamber HRpre = 88/min, HRpost=88/min. Review Status: Not Reviewed Pre-Bronch Post-Bronch Pred LLN ULN Actual %Pred Actual %Chng SPIROMETRY FVC (L) 4.29 3.25 5.36 3.29 76 3.93 19 FEV1 (L) 3.31 2.47 4.11 1.75 52 2.01 14 FEV1/FVC (%) 77 65 88 53 6 8 51 -3 FEF 25% (L/sec) 7.19 4.60 9.78 2.14 29 2.54 18 FEF 50% (L/sec) 4.43 2.22 6.64 1.01 22 1.30 28 FEF 75% (L/sec) 0.80 0.31 1.91 0.31 38 0.47 52 FEF 25-75% (L/sec) 2.72 1.29 4.68 0.78 28 1.07 36 FEF Max (L/sec) 8.66 6.43 10.88 3.07 35 3.75 22 FIVC (L) 3.29 3.79 15 FIF 50% (L/sec) 4.64 2.53 6.75 4.05 87 4.58 13 FIF Max (L/sec) 4.14 4.69 13 FET (sec) 11.95 15.89 32 Back Extrap Vol (L) 0.07 0.08 13 Time To FEFmax (sec) 0.101 0.123 20 documented in this encounter [facility] 01-05-2023 History of Present illness Narrative Radiology Service Progress Note PATIENT NAME: Dee Dee DATE OF SERVICE: January 05, 2023 TIME: 2:11 PM PATIENT IDENTITY VERIFICATION COMPLETED USING TWO (2) IDENTIFIERS: Name and Date of confirmed by patient verbally. FALL SCREENING: Has the patient had 2 falls in the last year or 1 fall with injury or currently using an Ambulatory Assistive Device (Walker, Cane, Wheelchair, Crutches, etc.)? No PATIENT GENDER DATA: Male PATIENT RELEVANT IMPLANT DATA REVIEWED: Yes RADIOLOGY DEPARTMENT: CT; Exam(s) Completed: Chest PERIPHERAL IV DATA: Not applicable SIGNED BY: RT Hoang(R) January 05, 2023 2:11 PM documented in this encounter [facility] 12-16-2022 Instructions Trini Dietz MD - 12/16/2022 3:15 PM EDT Plan: Continue medication: Depakote ER 1000 mg twice daily No EEG at this time - last was ~50 years ago. He lives an hour away and results will not change my management. If seizures recur we would get a repeat EEG. Routine labs: cbc, bmp, lfts, vitamin D, AED levels - Ordered. Have labs drawn either early in the morning before you take you medications of much later in the day, at least 6 hours after your last dose of anti-seizure medication. Vitamin D supplementation - continued 1000 international units I discussed with the patient issues relating to general seizure precautions (including but not limited to avoiding unsupervised tub baths,swimming alone, using sharp objects, using heavy machinery and avoiding high places) as well as calling 911 with a prolonged seizure lasting more than 2 minutes. The patient understood these instructions and agreed to follow this advice. Return to clinic in 12 months with RAUDEL Castillo. Call if any seizures or issues before then at . documented in this encounter [facility] 12-16-2022 History of Present illness Narrative Images from the original note were not included. Documentation: Mode: In Person Time-Based Billing Justifications: Charting in Epic Patient visit (including performing a medically appropriate exam) Obtaining history (or reviewing separately obtained history) Reviewing (chart, labs, and other clinical notes) Counseling/educating the patient/family/caregiver Ordering/interpreting (medications, tests, procedures) Dee Dee was seen at [facility]. Please see the below progress note for details regarding the office visit and treatment plan. EPILEPSY FOLLOW-UP VISIT Name: Dee Dee : 1955 Referring provider: PATIENT, SELF No address on file Date of Visit: 12/16/2022 History Provider/Accompanied by: self CHIEF COMPLAINT: Seizures HPI: The patient is a 67 year old right handed male who presents today at [facility] for evaluation of seizures. 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 He has been on depakote for years and is very well controlled. Last generalized tonic clonic seizure was in the 1970s, but he continued to have myoclonic jerks a few times per year, last 09/2021. No jerks in the past year. He reports minor tremor with the depakote but it is not bothersome. Today he said continues to be seizure free, no clear side-effects (mild tremor when holds coffee cup), tolerates medication well. He had issues with [facility] and getting his medication, he missed 2 days of medication but did not have any seizures. Disease History: Dee Dee states his first seizure was at age [age] years old. He would get up with his father and have coffee with him, and he would have myoclonic jerks and would throw his coffee at this dad. He was initially placed on dilantin for years. He had had 4 generalized tonic clonic seizures when he would stop taking the dilantin. Then he improved his compliance and never had another generalized tonic clonic seizures. When he moved to [place], and got a new family doctor. He told the provider he needed the dilantin. He was then sent to a neurologist - [facility] in [place], once a year. Saw Dr. Johns who switched him from dilantin to depakote. One year he went hunting, and he could feel his legs twitching, but only at night and after a lot of walking with hunting, his depakote was increased from 3 tabs to 4 tabs and never had another seizure. Once in a blue field he will have a small twitch. He states he has minor tremor that is not bothersome. He was worried he was going to run out of Depakote so for a month he took 1000/500 but is now back to 1000 mg twice daily for the past month SEIZURE TYPES Seizure Type A: Onset: age 19 Aura: none Seizure Description: Generalized tonic clonic seizures, sleep for hours afterwards Frequency: 4 in his lifetime, only when he missed medications Last one: Seizure Type B: Onset: age 19 Aura: none Seizure Description: Myoclonic jerks Duration: seconds Frequency: a few times per year Last one: 09/2021 Current antiepileptic drugs: Depakote 1000 mg twice daily Side-effects with current antiepileptic drugs: Tremor - minor Compliant: yes Prior antiepileptic drugs: (Side effects, reason discontinued) Dilantin - changes because told it was the wrong medication MEDICATIONS: Current Outpatient Medications on File Prior to Visit Medication Sig Dispense Refill divalproex ER (DEPAKOTE ER) 500 MG ER tablet Take 2 tablets by mouth 2 times daily. 360 Tablet 3 Cholecalciferol (Vitamin D) 25 MCG (1000 UT) TABS Take 1 tablet by mouth daily. 90 Tablet 3 albuterol (PROVENTIL HFA) INHALATION HFA inhaler (VENTOLIN,PROAIR,PROVENTIL) 90mcg INHALE 2 PUFFS EVERY 6 HOURS NEEDED FOR SHORTNESS OF BREATH OR WHEEZING albuterol (PROVENTIL) (2.5 MG/3ML) 0.083% nebulizer solution albuterol sulfate 2.5 mg/3 mL (0.083 %) solution for nebulization USE 1 3ML VIAL VIA NEBULIZER EVERY 4 HOURS OVER 5 15 MIN NEEDED FOR WHEEZING/SHORTNESS OF BREATH No current facility-administered medications on file prior to visit. ALLERGIES: No Known Allergies Special Features Status epilepticus: No Self Injury Seizures: no Precipitating Factors: None Epilepsy Risk Factors: Abnormal : No Abnormal /: No, webbed toes each foot. Abnormal Development: No Febrile seizures, simple or complex: No COLD ROLLER infection: No Intellectual disability: No Cerebral palsy: No Head injury (moderate/severe): No COLD ROLLER neoplasm: No COLD ROLLER malformation: No Neurosurgical procedure: No Stroke: No Alcohol abuse: No Drug abuse: No Family history Sz/epilepsy: Father has history of single seizure History reviewed. No pertinent past medical history. History reviewed. No pertinent surgical history. Past Psychiatric History: Depression: No Anxiety: No Psychosis: No Family history: No family history on file. Social History Living situation: Lives with significant other and her family Tobacco: Social History Tobacco Use Smoking Status Every Day Packs/day: 0.25 Types: Cigarettes Smokeless Tobacco Never Alcohol: Rarely, except around Hunting season, a week at a time, x2 per year, so total drinking 10-15 per year. 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 Attention/concentration: Able to spell WORLD forward and backwards Recent/remote memory: Recalls two out of three objects at five minutes, 3/3 with prompting Language: Intact naming, repetition and comprehension CRANIAL NERVES II: PERRL. Visual albrecht full. III, IV, : Extraocular movements intact. No nystagmus. V: Facial sensation normal V1-V3 VII: Facial movements normal and symmetric VIII: Intact hearing bilaterally IX, X: Palate elevation normal and symmetric XI: Intact trapezius, SCM strength XII: Tongue protrudes to the midline MOTOR (Upper and lower extremities) Bulk/tone/abnormal movement: Normal muscle bulk and tone. Drift: No pronator drift. Strength: Strength 5/5 throughout. COORDINATION F/N: normal DANIEL: normal Station/Gait: Normal baseline gait. Normal, no difficulty with tandem gait today. Romberg sign absent. SENSORY Vibration: normal REFLEXES DTRs: 2+/4 throughout Plantar responses: flexor STUDIES REVIEWED: Imaging: None to review EEGs: None to review Labs: Anti-seizure medication levels: Valproic Acid Date Value Ref Range Status 12/24/2021 89 50 - 100 ug/mL Final CBC (last 3 years, up to 5 values) WBC RBC Hgb Hct MCV RDW Plt 12/24/21 1358 6.8 4.73 14.9 43.7 93 15.4 139 Basic Metabolic Panel Na K Cl CO2 Gap Glu BUN Cr Ca 12/24/21 1358 139 4.6 106 28 10 91 24 0.74 8.8 LFT's (last 3 years, up to 5 values) T Prot Albumin D Bili T Bili Alk Phos ALT AST 12/24/21 1358 6.0 3.9 0.10 0.5 55 25 21 Vitamin D, 25-OH (ng/mL) Date Value 12/24/2021 30.9 Diagnostic/Impression: In short, Mr. Dee Dee is a 67 year old male who presents today for follow-up for evaluation of seizures. 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 He has been on depakote for years and is very well controlled. Last generalized tonic clonic seizure was in the 1970s, but he continued to have myoclonic jerks a few times per year, last 09/2021, with no jerks over the past year. He reports minor tremor with the depakote but it is not bothersome. No change in management at this time. I discussed issues regarding seizure safety with Mr. Dee during today's clinic visit. I informed him that he should avoid potentially dangerous activities that have the potential to result in serious injury if a seizure occurs, such as standing at heights without support, operating heavy machinery, or standing / working near open flames. I also encouraged him to take showers instead of baths. Finally, I told him to avoid swimming in areas without a certified car wash attendant automatic on duty; I informed him that any swimming should be considered a high risk activity, because patients with epilepsy have a 15x higher risk of drowning than the general population. We discussed seizure precipitants. I explained that 1) sleep deprivation can lower the seizure threshold, 2) alcohol can lower the seizure threshold, and should be avoided or used in moderation, 3) medications containing diphenhydramine or phenylephrine increase the risk of seizures and should be avoided, and 4) other medications may also interact with AEDs- he should contact me with question about new medications. Plan: Continue medication: Depakote ER 1000 mg twice daily No EEG at this time - last was ~50 years ago. He lives an hour away and results will not change my management. If seizures recur we would get a repeat EEG. Routine labs: cbc, bmp, lfts, vitamin D, AED levels - Ordered. Have labs drawn either early in the morning before you take you medications of much later in the day, at least 6 hours after your last dose of anti-seizure medication. Vitamin D supplementation - continued 1000 international units I discussed with the patient issues relating to general seizure precautions (including but not limited to avoiding unsupervised tub baths,swimming alone, using sharp objects, using heavy machinery and avoiding high places) as well as calling 911 with a prolonged seizure lasting more than 2 minutes. The patient understood these instructions and agreed to follow this advice. Return to clinic in 12 months with Valeria Rodriguez, RAUDEL. Call if any seizures or issues before then at . Trini Dietz MD Staff Department of Neurology Decision making was of high-complexity due to the patient's high risk of possible seizures, and development of psychiatric and neuropsychological comorbidities, behavioral problems, memory and cognitive problems, medication side effects, discussion of driving, maintenance of a seizure calendar, the risk of SUDEP, bone health, and planning of diagnostic studies. Issues addressed during this clinic visit included overall management, medication counseling or monitoring (including adverse effects, side effects and risks of antiepileptic medications). documented in this encounter [facility] 12-25-2021 Telephone encounter Note [facility] has attempted to reach this patient to discuss prescriptions received for the following medications: Divalproex ER 500mg ER tablet Vitamin D3 25 mcg tablet Reason for call: The pharmacy has received a prescription for a new or changed therapy. Please reach the pharmacy at [phone], option 4, for therapy review and confirmation of order details should mailing be desired. Thank you. [facility] 12-25-2021 Miscellaneous Notes [facility] has attempted to reach this patient to discuss prescriptions received for the following medications: Divalproex ER 500mg ER tablet Vitamin D3 25 mcg tablet Reason for call: The pharmacy has received a prescription for a new or changed therapy. Please reach the pharmacy at [phone], option 4, for therapy review and confirmation of order details should mailing be desired. Thank you. documented in this encounter [facility] 12-24-2021 Instructions Trini Dietz MD - 12/24/2021 1:45 PM EDT Plan: Continue medication: Depakote ER 1000 mg twice daily No EEG at this time - last was ~50 years ago. He lives an hour away and results will not change my management. If seizures recur we would get a repeat EEG Routine labs: cbc, bmp, lfts, vitamin D, AED levels. Have labs drawn either early in the morning before you take you medications of much later in the day, at least 6 hours after your last dose of anti-seizure medication. Vitamin D supplementation - start 1000 international units I discussed with the patient issues relating to general seizure precautions (including but not limited to avoiding unsupervised tub baths,swimming alone, using sharp objects, using heavy machinery and avoiding high places) as well as calling 911 with a prolonged seizure lasting more than 2 minutes. The patient understood these instructions and agreed to follow this advice. Return to clinic in 12 months with Epilepsy RAUDEL. Call if any seizures or issues before then at . ----- COMMON MEDICATION INTERACTIONS RECOMMENDATIONS FOR PATIENTS TAKING SEIZURE MEDICATIONS Patients taking antiepileptic medication(s): 1. CAN take: For pain: Acetaminophen (Tylenol) Ibuprofen (such as Advil, Motrin, Nuprin) Aspirin in most cases AVOID Tylenol PM, Advil PM (these medications contain diphenhydramine) 2. CAN take: For cough: Guaifenesin/Dextromethorphan (Robitussin DM, Vicks Formula 44, Mucinex DM) AVOID Sudafed, Claritin-D, Zyrtec-D, Mucinex-D, Shilpi-D, or any other products that contain pseudoephedrine or phenylephrine if possible 3. CAN take: For runny nose or allergies: Cetirizine (Zyrtec) Chlorpheniramine (Chlor-Trimeton) Fexofenadine (Shilpi) Loratidine (Claritin) AVOID Benadryl (diphenhydramine) WARNINGS: 1) Some medications and drugs may increase the chances of having seizures. These include: 1. Some antipsychotic medications for hallucinations (for example Haldol (haloperidol), Clozaril) 2. Some antidepressant medications (for example, Wellbutrin (buproprion)) 3. Some cold medications (for example, Benadryl, Sudafed) 4. Some smoking cessation medications (for example Zyban - buproprion) 5. Some hormone replacement treatments for menopause (for example, Prempro) 6. Some antibiotics (for example, Flagyl (metronidazole), Ciprofloxacin, Levaquin (levofloxacin), Noroxin, Factive, Imipenem, Meropenem) 7. Some asthma medications (for example theophylline - Torin-Dur, Uniphyl, Torin-24) 8. Some pain medications (for example, Demerol, Tramadol) 9. Some herbal supplements (for example borage, ephedra, ephedrine, evening primrose, some herbal essential oils) 10. Alcohol, cocaine, and amphetamines 11. Stimulants such as Ritalin, Adderall, and other medications for Attention Deficit Disorder DO NOT usually increase the risk of seizures. These effects are difficult to predict, and some medications in these groups are safe to take even if you have seizures. Whenever you start a new medication (including herbs), discuss with your doctor whether the medication may have an effect on your seizures. 2) control pills Many of the seizure medications may decrease the effectiveness of control pills, vaginal rings (NuvaRing) and contraceptive patches (Ortho Evra). This can result in an unplanned . These medications include: carbamazepine (Tegretol), phenytoin (Dilantin), phenobarbital (Luminal), primidone (Mysoline), oxcarbazepine (Trileptal), and, at high doses, topiramate (Topamax). control pills may lower the levels of lamotrigine (Lamictal) in your blood, and may result in a breakthrough seizure. 3) Drug interactions Many medications taken for other reasons can interact with your seizure medications. This can either increase the level of your seizure medication, causing side effects, or decrease it, possibly resulting in seizures. Or, your seizure medication can change the level of another medication, making it less effective or more likely to cause side effects. Some side effects are listed below. Not all interactions have been listed, just some of the more common ones. Check with your doctor about any possible interactions. Possible drug interactions with carbamazepine (Tegretol, Tegretol XR, or Carbatrol): Cimetidine (Tagamet) ulcer medication Clarithromycin (Biaxin) antibiotic Diltiazem (Cardizem, Dilacor) blood pressure/heart problems Verapamil (Calan, Isoptin, Verelan) blood pressure/heart problems Erythromycin (E-mycin, EES and others) antibiotic Isoniazid (INH) tuberculosis Warfarin (Coumadin) blood thinner / treats blood clots Possible drug interactions with phenytoin (Dilantin) Cimetidine (Tagamet) ulcer medication Fluconazole (Diflucan) fungal infections Isoniazid (INH, Nydrazid) tuberculosis Itraconazole (Sporanox) fungal infections Rifampin (Rifadin) tuberculosis Sucralfate (Carafate) ulcers Sulfonamide (Septra, Bactrim) antibiotic Possible drug interactions with valproic acid (Depakene/Depakote) or acetazolamide (Diamox): Aspirin (Ascriptin, Ruma, Ecotrin, Excedrin and others) Salicylates (Pepto-Bismol, Arthropan, Chavez s, Disalcid, Uracel 5, Tusal) If you have any questions regarding drug interactions, call your doctor. documented in this encounter [facility] 12-24-2021 History of Present illness Narrative Images from the original note were not included. Documentation: Mode: In Person Time-Based Billing Justifications: Charting in Epic Patient visit (including performing a medically appropriate exam) Obtaining history (or reviewing separately obtained history) Reviewing (chart, labs, and other clinical notes) Counseling/educating the patient/family/caregiver Ordering/interpreting (medications, tests, procedures) Dee Dee was seen at [facility]. Please see the below progress note for details regarding the office visit and treatment plan. EPILEPSY INITIAL VISIT Name: Dee Dee : 1955 Referring provider: Tiny Mello MD [address] [place] [address] Date of Visit: 12/24/2021 History Provider/Accompanied by: self CHIEF COMPLAINT: Seizures HPI: The patient is a 66 year old right handed male who presents today at [facility] for evaluation of seizures. Chart review: Neurology consult was ordered by Senait Lam on 10/14/21. On further review, I found under Clinisyn in the chart: Reports a history of epilepsy for years. Has been on Depakote and he states that his symptoms have been well controlled on this. No recent seizures. Has not seen neurology in a while. But he reports compliance with his medication. Disease History: Dee Dee states his first seizure was at age [age] years old. He would get up with his father and have coffee with him, and he would have myoclonic jerks and would throw his coffee at this dad. He was initially placed on dilantin for years. He had had 4 generalized tonic clonic seizures when he would stop taking the dilantin. Then he improved his compliance and never had another generalized tonic clonic seizures. When he moved to [place], and got a new family doctor. He told the provider he needed the dilantin. He was then sent to a neurologist - [facility] in [place], once a year. Saw Dr. Johns who switched him from dilantin to depakote. One year he went hunting, and he could feel his legs twitching, but only at night and after a lot of walking with hunting, his depakote was increased from 3 tabs to 4 tabs and never had another seizure. Once in a blue field he will have a small twitch. He states he has minor tremor that is not bothersome. He was worried he was going to run out of Depakote so for a month he took 1000/500 but is now back to 1000 mg twice daily for the past month SEIZURE TYPES Seizure Type A: Onset: age 19 Aura: none Seizure Description: Generalized tonic clonic seizures, sleep for hours afterwards Frequency: 4 in his lifetime, only when he missed medications Last one: Seizure Type B: Onset: age 19 Aura: none Seizure Description: Myoclonic jerks Duration: seconds Frequency: a few times per year Last one: 09/2021 Current antiepileptic drugs: Depakote 1000 mg twice daily Side-effects with current antiepileptic drugs: Tremor - minor Compliant: yes Prior antiepileptic drugs: (Side effects, reason discontinued) Dilantin - changes because told it was the wrong medication MEDICATIONS: Current Outpatient Medications on File Prior to Visit Medication Sig Dispense Refill albuterol (PROVENTIL HFA) INHALATION HFA inhaler (VENTOLIN,PROAIR,PROVENTIL) 90mcg INHALE 2 PUFFS EVERY 6 HOURS NEEDED FOR SHORTNESS OF BREATH OR WHEEZING albuterol (PROVENTIL) (2.5 MG/3ML) 0.083% nebulizer solution albuterol sulfate 2.5 mg/3 mL (0.083 %) solution for nebulization USE 1 3ML VIAL VIA NEBULIZER EVERY 4 HOURS OVER 5 15 MIN NEEDED FOR WHEEZING/SHORTNESS OF BREATH divalproex ER (DEPAKOTE ER) 500 MG ER tablet Take 1,000 mg by mouth 2 times daily. No current facility-administered medications on file prior to visit. ALLERGIES: No Known Allergies Special Features Status epilepticus: No Self Injury Seizures: no Precipitating Factors: None Epilepsy Risk Factors: Abnormal : No Abnormal /: No, webbed toes each foot. Abnormal Development: No Febrile seizures, simple or complex: No COLD ROLLER infection: No Intellectual disability: No Cerebral palsy: No Head injury (moderate/severe): No COLD ROLLER neoplasm: No COLD ROLLER malformation: No Neurosurgical procedure: No Stroke: No Alcohol abuse: No Drug abuse: No Family history Sz/epilepsy: Father has history of single seizure History reviewed. No pertinent past medical history. History reviewed. No pertinent surgical history. Past Psychiatric History: Depression: No Anxiety: No Psychosis: No Family history: No family history on file. Social History Living situation: Lives with significant other and her family Tobacco: Social History Tobacco Use Smoking Status Current Every Day Smoker Packs/day: 0.25 Types: Cigarettes Smokeless Tobacco Never Used Alcohol: Rarely, except around Hunting season, a week at a time, x2 per year, so total drinking 10-15 per year. 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 Attention/concentration: Able to spell WORLD forward and backwards Recent/remote memory: Recalls two out of three objects at five minutes, 3/3 with prompting Language: Intact naming, repetition and comprehension CRANIAL NERVES II: PERRL. Visual albrecht full. III, IV, : Extraocular movements intact. No nystagmus. V: Facial sensation normal V1-V3 VII: Facial movements normal and symmetric VIII: Intact hearing bilaterally IX, X: Palate elevation normal and symmetric XI: Intact trapezius, SCM strength XII: Tongue protrudes to the midline MOTOR (Upper and lower extremities) Bulk/tone/abnormal movement: Normal muscle bulk and tone. Drift: No pronator drift. Strength: Strength 5/5 throughout. COORDINATION F/N: normal DANIEL: normal Station/Gait: Normal baseline gait. Minor difficulty with tandem gait. Romberg sign absent. SENSORY Vibration: normal REFLEXES DTRs: 2+/4 throughout Plantar responses: flexor STUDIES REVIEWED: Imaging: None to review EEGs: None to review Labs: Anti-seizure medication levels: No results found for: PHENYTOIN, LEVETIRA, PHENYTOIN, LACOSAMIDE, CARB, [id number], OXCARBA, TOPIR, PHNO, PRIM, VALPROICF, VALPROIC, LAMO CBC (last 3 years, up to 5 values) None Basic Metabolic Panel None LFT's (last 3 years, up to 5 values) None No results found for: VITD25 Diagnostic/Impression: In short, Mr. Dee Dee is a 66 year old male who presents today for evaluation of seizures. 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 He has been on depakote for years and is very well controlled. Last generalized tonic clonic seizure was in the 1970s, cut he continues to have myoclonic jerks a few times per year, last 09/2021. He reports minor tremor with the depakote but it is not bothersome. No change in management at this time. I discussed issues regarding seizure safety with Mr. Dee during today's clinic visit. I informed him that he should avoid potentially dangerous activities that have the potential to result in serious injury if a seizure occurs, such as standing at heights without support, operating heavy machinery, or standing / working near open flames. I also encouraged him to take showers instead of baths. Finally, I told him to avoid swimming in areas without a certified car wash attendant automatic on duty; I informed him that any swimming should be considered a high risk activity, because patients with epilepsy have a 15x higher risk of drowning than the general population. We discussed seizure precipitants. I explained that 1) sleep deprivation can lower the seizure threshold, 2) alcohol can lower the seizure threshold, and should be avoided or used in moderation, 3) medications containing diphenhydramine or phenylephrine increase the risk of seizures and should be avoided, and 4) other medications may also interact with AEDs- he should contact me with question about new medications. Plan: 1. Continue medication: Depakote ER 1000 mg twice daily 2. No EEG at this time - last was ~50 years ago. He lives an hour away and results will not change my management. If seizures recur we would get a repeat EEG 3. Routine labs: cbc, bmp, lfts, vitamin D, AED levels. Have labs drawn either early in the morning before you take you medications of much later in the day, at least 6 hours after your last dose of anti-seizure medication. 4. Vitamin D supplementation - start 1000 international units 5. I discussed with the patient issues relating to general seizure precautions (including but not limited to avoiding unsupervised tub baths,swimming alone, using sharp objects, using heavy machinery and avoiding high places) as well as calling 911 with a prolonged seizure lasting more than 2 minutes. The patient understood these instructions and agreed to follow this advice. 6. Return to clinic in 12 months with Epilepsy RAUDEL. Call if any seizures or issues before then at . Trini Dietz MD Staff Department of Neurology Decision making was of high-complexity due to the patient's high risk of possible seizures, and development of psychiatric and neuropsychological comorbidities, behavioral problems, memory and cognitive problems, medication side effects, discussion of driving, maintenance of a seizure calendar, the risk of SUDEP, bone health, and planning of diagnostic studies. Issues addressed during this clinic visit included overall management, medication counseling or monitoring (including adverse effects, side effects and risks of antiepileptic medications). Patient was identified by name and date of . 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 Vitamin D deficiency Unspecified vitamin D deficiency Encounter for therapeutic drug monitoring Body mass index (BMI) 26.0-26.9, adult [facility] Diagnosis Multiple lung nodules- Primary Other nonspecific abnormal finding of lung field Encounter for screening for lung cancer Tobacco use current documented in this encounter [facility] note* Diagnosis Encounter for screening for lung cancer- Primary Tobacco use current documented in this encounter [facility] note* Diagnosis Stage 3 severe COPD by GOLD classification (HCC)- Primary Multiple lung nodules Other nonspecific abnormal finding of lung field Tobacco use current Cigarette nicotine dependence without complication Tobacco use disorder documented in this encounter [facility] note* Diagnosis Stage 3 severe COPD by GOLD classification (HCC) documented in this encounter [facility] note* Diagnosis Stage 3 severe COPD by GOLD classification (HCC) documented in this encounter [facility] note* Diagnosis Stage 3 severe COPD by GOLD classification (HCC)- Primary Multiple lung nodules Other nonspecific abnormal finding of lung field Tobacco use current documented in this encounter [facility] note* Diagnosis Cigarette smoker Tobacco use disorder documented in this encounter [facility] note* Diagnosis Stage 3 severe COPD by GOLD classification (HCC)- Primary Cigarette smoker Tobacco use disorder documented in this encounter [facility] for referral (narrative)* Outpatient Procedure (Routine) - Authorized Specialty Diagnoses / Procedures Referred By Tamie t Referred To [facility] Diagnoses Stage 3 severe COPD by GOLD classification (HCC) Procedures LUNG DIFFUSION CAPACITY (DLCO) DIFFUSING CAPACITY Una Barrett PA-C [address] [place] [address] Respiratory [place] [address] [address] Referral ID Status Reason Start Date Expiration Date Visits Requested Visits Authorized [id number] Authorized Auto-Generat ed Referral 01/06/2023 02/05/2024 1 1 * Outpatient Procedure (Routine) - Authorized Specialty Diagnoses / Procedures Referred By Contac t Referred To Contact [facility] Diagnoses Stage 3 severe COPD by GOLD classification ([facility]) Procedures SPIROMETRY BASELINE ONLY SPMTRY W/VC EXPIRATORY CHRISTOPH W/WO MXML VOL VNTJ Una Barrett PA-C [address] [place] [address] Respiratory [place] [address] [place] [address] Referral ID Status Reason Start Date Expiration Date Visits Requested Visits Authorized [id number] Authorized Auto-Generat ed Referral 01/06/2023 02/05/2024 1 1 * Medication Prior Authorization - Pending Review Specialty Diagnoses / Procedures Referred By Contac t Referred To Contact Diagnoses Stage 3 severe COPD by GOLD classification ([facility]) Una Barrett PA-C [address] [place] [address] Referral ID Status Reason Start Date Expiration Date V isits Requested Visits Authorized [id number] Pending Review 1 1 [facility] Summary Purpose Family History No Family History Records FoundNo Family History Records FoundNo Family History Records FoundNo Family History Records FoundNo Family History Records Found Advance Directives No Advanced Directives Records FoundNo Advanced Directives Records FoundNo Advanced Directives Records FoundNo Advanced Directives Records FoundNo Advanced Directives Records Found Reason for Referral Specialty Diagnoses / Procedures Referred By Contac t Referred To Contact CT IMAGING Diagnoses Cigarette smoker Procedures CT LUNG SCREEN WO IVCON COMPUTED TOMOGRAPHY THORAX LW DOSE LNG CA Dolly Mendez, DEHYDROGENATION OPERATOR.GROUP DIRECTOR [address] [place] [address] Ct Imaging Referral ID Status Reason Start Date Expiration Date Visits Requested Visits Authorized [id number] Pending Review Auto-Generat ed Referral 10/14/2022 11/13/2023 1 1 Specialty Diagnoses / Procedures Referred By Contac t Referred To Contact CT IMAGING Diagnoses Encounter for screening for lung cancer Former tobacco use Procedures CT LUNG SCREEN WO IVCON COMPUTED TOMOGRAPHY THORAX LW DOSE LNG CA SCR Daniel Ya, DEHYDROGENATION OPERATOR.GROUP DIRECTOR [address] [place] [address] Ct Imaging Referral ID Status Reason Start Date Expiration Date Visits Requested Visits Authorized [id number] Authorized Auto-Generat ed Referral 01/06/2024 02/04/2024 1 1 Specialty Diagnoses / Procedures Referred By Tamie t Referred To Contact CT IMAGING Diagnoses Cigarette smoker Procedures CT LUNG SCREEN WO IVCON COMPUTED TOMOGRAPHY THORAX LW DOSE LNG CA SCR Herlinda- Dolly Munson, DEHYDROGENATION OPERATOR.GROUP DIRECTOR [address] [place] [address] [place] [address] Referral ID Status Reason Start Date Expiration Date V isits Requested Visits Authorized [id number] Closed Auto-Generate d Referral 10/14/2022 11/13/2023 1 1 Additional Source Comments (unrecognized sect ion and content) No Status Records FoundNo Status Records FoundNo Status Records FoundNo Status Records FoundNo Status Records Found INFORMATION SOURCE (unrecogn ized section and content) DATE CREATED AUTHOR AUTHOR'S ORGANIZ ATION 10/10/2020 [facility] DATE CREATED AUTHOR AUTHOR'S ORGANIZ ATION 12/30/2022 [facility] DATE CREATED AUTHOR AUTHOR'S ORGANIZ ATION 01/06/2023 [facility] DATE CREATED AUTHOR AUTHOR'S ORGANIZ ATION 06/18/2023 [facility] Reason for Visit (unrecogniz ed section and content) Specialty Diagnoses / Procedures Referred By Tamie t Referred To Contact Neurology Diagnoses Nonintractable epilepsy without status epilepticus, unspecified epilepsy type (HCC) Tiny Mello MD [address] [place] [address] [facility] [place] [address] Referral ID Status Reason Start Date Expiration Date V isits Requested Visits Authorized [id number] Authorized 10/14/2021 10/14/2022 3 3 Reason Onset Date Comments Outreach 12/25/2021 Reason Comments Established Patient LCS Reason Comments Established Patient COPD Reason Comments Medication Problem Reason Comments Spirometry Specialty Diagnoses / Procedures Referred By Contac t Referred To Contact [facility] Diagnoses Stage 3 severe COPD by GOLD classification ([facility]) Procedures LUNG DIFFUSION CAPACITY (DLCO) DIFFUSING CAPACITY Una Barrett PA-C [address] [place] [address] [place] [address] Referral ID Status Reason Start Date Expiration Date V isits Requested Visits Authorized [id number] Closed Auto-Generate d Referral 01/06/2023 02/05/2024 1 1 Specialty Diagnoses / Procedures Referred By Contac t Referred To Contact RESPIRATORY [facility]PE[facility] Diagnoses Stage 3 severe COPD by GOLD classification ([facility]) Procedures SPIROMETRY BASELINE ONLY SPMTRY W/VC EXPIRATORY CHRISTOPH W/WO MXML VOL VNTJ Una Barrett, JIMENA [id number] [place] [address] Referral ID Status Reason Start Date Expiration Date V isits Requested Visits Authorized [id number] Closed Auto-Generate d Referral 01/06/2023 02/05/2024 1 1 Reason Comments Established Patient 3 month follow up [place] PD Reason Comments Radiology CT Specialty Diagnoses / Procedures Referred By Contac t Referred To Contact CT IMAGING Diagnoses Cigarette smoker Procedures CT LUNG SCREEN WO IVCON COMPUTED TOMOGRAPHY THORAX LW DOSE LNG CA Dolly Mendez, EVY.GROUP DIRECTOR [id number] [facility] [place] [address] Referral ID Status Reason Start Date Expiration Date V isits Requested Visits Authorized [id number] Closed Auto-Generate d Referral 10/14/2022 11/13/2023 1 1 Reason Onset Date Comments Refill Request 05/12/2023 Reason Comments COPD Source Comments (unrecognize d section and content) In the event this informatio n is protected by the Federal Confidentiality of Alcohol and Drug Abuse Patient Records regulations: The Federal rules restrict any use of the information to criminally investigate or prosecute any alcohol or drug abuse patient.[facility] the event this information is protected by the Federal Confidentiality of Alcohol and Drug Abuse Patient Records regulations: The Federal rules restrict any use of the information to criminally investigate or prosecute any alcohol or drug abuse patient.[facility] the event this information is protected by the Federal Confidentiality of Alcohol and Drug Abuse Patient Records regulations: The Federal rules restrict any use of the information to criminally investigate or prosecute any alcohol or drug abuse patient.[facility] the event this information is protected by the Federal Confidentiality of Alcohol and Drug Abuse Patient Records regulations: The Federal rules restrict any use of the information to criminally investigate or prosecute any alcohol or drug abuse patient.[facility] the event this information is protected by the Federal Confidentiality of Alcohol and Drug Abuse Patient Records regulations: The Federal rules restrict any use of the information to criminally investigate or prosecute any alcohol or drug abuse patient.[facility] the event this information is protected by the Federal Confidentiality of Alcohol and Drug Abuse Patient Records regulations: The Federal rules restrict any use of the information to criminally investigate or prosecute any alcohol or drug abuse patient.[facility] the event this information is protected by the Federal Confidentiality of Alcohol and Drug Abuse Patient Records regulations: The Federal rules restrict any use of the information to criminally investigate or prosecute any alcohol or drug abuse patient.[facility] the event this information is protected by the Federal Confidentiality of Alcohol and Drug Abuse Patient Records regulations: The Federal rules restrict any use of the information to criminally investigate or prosecute any alcohol or drug abuse patient.[facility] the event this information is protected by the Federal Confidentiality of Alcohol and Drug Abuse Patient Records regulations: The Federal rules restrict any use of the information to criminally investigate or prosecute any alcohol or drug abuse patient.[facility] the event this information is protected by the Federal Confidentiality of Alcohol and Drug Abuse Patient Records regulations: The Federal rules restrict any use of the information to criminally investigate or prosecute any alcohol or drug abuse patient.[facility] the event this information is protected by the Federal Confidentiality of Alcohol and Drug Abuse Patient Records regulations: The Federal rules restrict any use of the information to criminally investigate or prosecute any alcohol or drug abuse patient.[facility] Care Teams (unrecognized sec tion and content) [employer] Relationship Specialty Start Date End Date Saima Perry MD [address] [place] [address] Pulmonary and Critical Care Medicine 01/06/23 [employer] Relationship Specialty Start Date End Date Saima Perry MD [address] [place] [address] Pulmonary and Critical Care Medicine 01/06/23 [employer] Relationship Specialty Start Date End Date Saima Perry MD [address] [place] [address] Pulmonary and Critical Care Medicine 01/06/23 [employer] Relationship Specialty Start Date End Date Saima Perry MD [address] [place] [address] Pulmonary and Critical Care Medicine 01/06/23 [employer] Relationship Specialty Start Date End Date Saima Perry MD [address] [place] [address] Pulmonary and Critical Care Medicine 01/06/23 [employer] Relationship Specialty Start Date End Date Saima Perry MD [address] [place] [address] Pulmonary and Critical Care Medicine 01/06/23 [employer] Relationship Specialty Start Date End Date Saima Perry MD [address] [place] [address] Pulmonary and Critical Care Medicine 01/06/23 FOR RECORDS PERTAINING TO PATIENTS WHO ARE OR HAVE BEEN ENROLLED IN A CHEMICAL DEPENDENCY/SUBSTANCEABUSE PROGRAM, SOME INFORMATION MAY BE OMITTED. This clinical summary was aggregated from multiple sources. Caution should be exercised in using it in the provision of clinical care. This summary normalizes information from multiple sources, and as a consequence, information in this document may materially change the coding, format and clinical context of patient data. In addition, data may be omitted in some cases. CLINICAL DECISIONS SHOULD BE BASED ON THE PRIMARY CLINICAL RECORDS. [facility] [employer] [facility] provides no warranty or guarantee of the accuracy or completeness of information in this document.
[2023-07-01 15:22] LABS: Absolute Lymphocyte Count 3.34 X10^3/uL (0.83-4.51); Basophil# 0.02 X10^3/uL; Basophil% 0.2 % (0-1); Eosinophil# 0.09 X10^3/uL; Eosinophils% 0.9 % (0-5); Hematocrit 43.8 % (40-54); Hemoglobin 14.2 g/dL (13.0-16.5); Lymphocyte # 3.34 X10^3/ul (0.83-4.51); Lymphocyte % 32.8 % (19-41); Mean Corp Hgb Conc 32.4 g/dL (32-36); Mean Corpuscular Hgb 30.6 pg (27.0-32.0); Mean Corpuscular Volume 94.4 fL (80-94); Mean Platelet Vol. 10.1 fl (6.2-12.0); Monocyte# 0.69 X10^3/uL; Monocyte% 6.8 % (0-10); NRBC Flagged by Analyzer 0 % (0-5); Neutrophil # 6.01 X10^3/uL (2.7-7.7); Platelet Count 261 K/mm3 (150-450); RBC Distribution Width CV 14.6 % (11.6-14.6); RBC Distribution Width SD 51.1 fl (35.1-43.9); Red Blood Count 4.64 M/mm3 (4.6-6.2); White Blood Count 10.2 K/mm3 (4.4-11.0)
[2023-07-01 15:33] LABS: AST(SGOT) 9 U/L (15-37); Alanine Aminotransfer ALT/SGPT 21 U/L (16-61); Albumin, Serum 3.6 g/dL (3.2-5.0); Alkaline Phosphatase 70 U/L (45-117); Anion Gap 5 (5-15); BUN 25 mg/dL (7-18); BUN/Creat Ratio 37.9 RATIO (10-20); Chloride 106 mmol/L (98-107); Creatinine, Serum 0.66 mg/dL (0.70-1.30); EST Glomerular Filtration Rate 128 mL/min (>60); Est Glom Filt Rate - Afr Amer 155 mL/min (>60); Globulin 3.5 g/dL (2.2-4.2); Glucose 96 mg/dL (74-106); Protein, Total 7.1 g/dL (6.4-8.2); Sodium Level 137 mmol/L (136-145)
== END | disposition home or self-care (01) ==
LOC: BIMLAB 14:01
PROVIDERS: PCP Internal Medicine; Referring Provider Internal Medicine; Visit Provider Internal Medicine
DX: R56.9 Unspecified convulsions (principal); I10 Essential (primary) hypertension
CPT/HCPCS: 36415; 80053; 85025